=== PATIENT | male | born 1950 | race Caucasian/White ===

== ENCOUNTER 2020-07-07 12:06 | Outpatient (REF) | payer OTHER, SELFPAY ==
[2020-07-07 18:07] LABS: Abs Immature Grans 0.07 10^3/uL (0.0-0.06); Absolute Eosinophil Count 0.24 10^3/uL (0.0-0.7); Absolute Lymphocyte Count 2.54 10^3/uL (1.2-3.4); Absolute Monocyte Count 1.05 10^3/uL (0.1-0.8); Absolute Neutrophil Count 6.94 10^3/uL (1.2-6.7); Basophils % 0.6; Eosinophils % 2.2; HCT 48.8 % (40.0-50.0); HGB 16.7 g/dL (13.5-17.5); Immature Grans % 0.6; Lymphocytes % 23.3; MCHC 34.2 % (32.0-36.0); MCV 90.7 fL (80-95); MPV 11.6 fL (8.0-11.0); Monocytes % 9.6; Neutrophils % 63.7; Nucleated RBC 0 %; Platelet Count 339 10^3/uL (130-400); RBC 5.38 10^6/uL (4.36-5.78); RDW 13.6 % (11.8-14.1); RDW-SD 45.4 fL
[2020-07-07 18:08] LABS: Absolute Basophil Count 0.07 10^3/uL (0.0-0.2)
[2020-07-07 18:31] LABS: ALT 27 U/L (16-63); Albumin 3.6 g/dL (3.4-5.0); Alkaline Phosphatase 78 U/L (46-116); Anion Gap 8.8 mmol/L (3-11); BUN 19 mg/dL (7-18); Bilirubin, Total 0.5 mg/dL (0.2-1.0); CO2 26.2 mmol/L (21.0-32.0); CREATININE 1.09 mg/dL (0.70-1.30); Calcium 9.4 mg/dL (8.5-10.1); Chloride 101 mmol/L (98-107); Glucose 119 mg/dL (74-106); Potassium 4.2 mmol/L (3.5-5.1); Sodium 136 mmol/L (136-145); Total Protein 7.1 g/dL (6.4-8.2)
[2020-07-07 19:37] LABS: AST 29 U/L (15-37)
== END 2020-07-07 12:26 ==
LOC: NCHCN 12:06
PROVIDERS: PCP Family Medicine; Visit Provider Family Medicine
DX: D64.9 Anemia, unspecified (principal); N39.0 Urinary tract infection, site not specified
CPT/HCPCS: 80053; 85025; 87086

== ENCOUNTER 2020-07-15 08:30 | Outpatient (REF) | payer OTHER, SELFPAY ==
[2020-07-19 23:18] LABS: Source: Passed Stone
== END 2020-07-15 08:50 ==
LOC: NCHCN 08:30
PROVIDERS: PCP Family Medicine; Visit Provider Family Medicine
DX: N20.0 Calculus of kidney (principal)
CPT/HCPCS: 82365

== ENCOUNTER 2020-08-06 12:04 | Outpatient (REF) | payer MEDICARE, SELFPAY | END 2020-08-06 12:24 | LOC: NCHCN 12:04 | PROVIDERS: PCP Family Medicine; Visit Provider Family Medicine | DX: R31.0 Gross hematuria (principal) | CPT/HCPCS: 87086 ==

== ENCOUNTER 2020-08-13 16:56 | Outpatient (REF) | payer MEDICARE, SELFPAY ==
[2020-08-13 18:12] LABS: Bilirubin Negative (Negative); Blood Negative (Negative); Clarity Clear (Clear); Glucose 100 mg/dL (Negative); Ketones Negative (Negative); Leukocyte Esterase Negative (Negative); Nitrite Negative (Negative); Urobilinogen 0.2 EU/dL (Up TO 0.2)
== END 2020-08-13 17:16 ==
LOC: NCHCN 16:56
PROVIDERS: PCP Family Medicine; Visit Provider Family Medicine
DX: R31.0 Gross hematuria (principal)
CPT/HCPCS: 81003

== ENCOUNTER 2020-08-17 00:51 | Outpatient (CLI) | payer OTHER, SELFPAY ==
[2020-08-17] MEDS: Normal Saline - Diluent 50 ML VIAL IV (10:45)
[2020-08-17] MEDS: Omnipaque 350 MG/ML 100 ML BTL IJ (10:46)
--- NOTE | 2020-08-17 10:55 | DI.CT_ITS ---
EXAM: CT ABDOMEN PELVIS W CLINICAL HISTORY: FLANK PAIN, GROSS HEMATURIA, R31.0 TECHNIQUE: Imaging Protocol: Axial computed tomography images with coronal and sagittal reformatted images were created and reviewed CONTRAST MATERIAL: Intravenous: Omnipaque 350 Contrast volume:100 mL Oral: No COMPARISON: CT ABD PELVIS WITH CONTRAST from 10/17/2017 FINDINGS: ABDOMEN: Lung Bases: Emphysematous changes are seen in the lung bases. Calcified granuloma are seen in the kristy ng bases. There is a small hiatal hernia. Liver: Normal density. Several tiny hypodensities are seen scattered throughout the liver. They are too small for further characterization but likely reflect small cysts. They are stable compared to t he prior examination. Portal, Superior Mesenteric, and Splenic Veins: Unremarkable. Gallbladder and Biliary Tract: No radiodense calculus or dilation. Pancreas: Normal density, no abnormal calcifications or inflammatory process. Spleen: Normal. There are calcified granuloma in the spleen. Adrenals: There are stable bilateral adrenal nodules. Kidneys: Normal size, contour and axis. No radiodense stones or obstructive uropathy. There are stabl e bilateral renal cysts. No suspicious renal masses. Abdominal Aorta: Abdominal portion non-dilated. Atherosclerosis. Bowel: No obstruction or bowel wall thickening. No evidence of appendicitis. Extensive colonic diver ticulosis is present but no evidence of acute diverticulitis. Peritoneal Cavity: No ascites, collection or mesenteric inflammatory response. No free air. Lymph Nodes: Within normal limits. Bones: Degenerative changes. Soft Tissues: There is a small fat containing umbilical hernia. PELVIS: Bladder: There is mild diffuse uniform bladder wall thickening likely secondary to bladder outlet obs truction. There is an enlarged prostate gland. It impinges upon the base of the urinary bladder. Reproductive Organs: Enlarged prostate gland. Lymph Nodes: Within normal limits. Bones: Degenerative changes. IMPRESSION: 1. Enlarged prostate gland impinging upon the base of the urinary bladder. Uniform symmetric urinary bladder wall thickening likely due to bladder outlet obstruction. No definite findings to suggest a n inflammatory/infectious process. 2. No evidence of nephrolithiasis or hydronephrosis. 3. Stable bilateral adrenal nodules. 4. Colonic diverticulosis but no evidence of acute diverticulitis. RADIATION DOSE DELIVERED: 709.89mGy.cm Total DLP DATA REPOSITORY: All CT scans at this facility are submitted to the National Radiology Data Registry (NRDR) Dose Index Registry (DIR) with the [employer] (A[employer]). RADIATION OPTIMIZATION: All CT scans at this facility use at least one of these dose optimization te chniques: automated exposure control; mA and/or kV adjustment per patient size (includes targeted exa ms where dose is matched to clinical indication); or iterative reconstruction.
== END 2020-08-17 01:11 ==
PROVIDERS: PCP Family Medicine; Visit Provider Family Medicine
DX: R31.0 Gross hematuria (principal); N40.1 Benign prostatic hyperplasia with lower urinary tract symptoms; K57.30 Diverticulosis of large intestine without perforation or abscess without bleeding; E27.8 Other specified disorders of adrenal gland
CPT/HCPCS: 74177; J3490

== ENCOUNTER 2020-08-27 03:17 | Outpatient (CLI) | payer MEDICARE, SELFPAY | END 2020-08-27 03:37 | PROVIDERS: PCP Family Medicine; Visit Provider Family Medicine | DX: I10 Essential (primary) hypertension (principal); R10.31 Right lower quadrant pain | CPT/HCPCS: 36415; 82565 ==

== ENCOUNTER 2020-09-01 09:37 | Outpatient (REF) | payer MEDICARE, SELFPAY ==
[2020-09-01 20:28] LABS: PSA, Screening 7.6 ng/mL (0.0-6.5)
== END 2020-09-01 09:38 | disposition home or self-care (01) ==
LOC: URO 09:37
PROVIDERS: PCP Family Medicine; Referring Provider Family Medicine; Visit Provider Nurse Practitioner Gerontology
DX: Z12.5 Encounter for screening for malignant neoplasm of prostate (principal)
CPT/HCPCS: 84153

== ENCOUNTER → 2020-09-01 09:37 | Outpatient (BNVA) | payer MEDICARE, SELFPAY | PROVIDERS: PCP Family Medicine; Referring Provider Family Medicine; Visit Provider Nurse Practitioner Gerontology | DX: R31.0 Gross hematuria (principal); N40.1 Benign prostatic hyperplasia with lower urinary tract symptoms; N13.8 Other obstructive and reflux uropathy | CPT/HCPCS: 99215; G2212 ==

== ENCOUNTER 2020-12-16 02:47 | Outpatient (CLI) | payer MEDICARE, SELFPAY ==
[2020-12-18 17:16] LABS: Free PSA/PSA Ratio 0.23 ratio
== END 2020-12-16 02:48 | disposition home or self-care (01) ==
LOC: LBO 02:48
PROVIDERS: PCP Family Medicine; Visit Provider Nurse Practitioner Gerontology
DX: R97.20 Elevated prostate specific antigen [PSA] (principal)
CPT/HCPCS: 36415; 84154

== ENCOUNTER 2021-07-19 18:50 | Outpatient (REF) | payer MEDICARE, SELFPAY ==
[2021-07-20 09:37] LABS: Bilirubin Negative (Negative); Blood Trace-intact (Negative); Clarity Clear (Clear); Glucose Negative (Negative); Ketones Negative (Negative); Leukocyte Esterase Negative (Negative); Nitrite Negative (Negative); Specific Gravity 1.015 (1.005-1.025); Urobilinogen 0.2 EU/dL (Up TO 0.2); pH 5.5 (5-8)
[2021-07-20 09:45] LABS: Bacteria Rare HPF (Negative); C & S Indicated? No; Casts Negative LPF (Negative); Crystals Negative HPF (Negative); Epithelial Cells Rare HPF (Negative); Mucus Negative (Negative); WBC 0-2 HPF (0-5)
== END 2021-07-19 18:51 | disposition home or self-care (01) ==
LOC: NCHCN 18:50
PROVIDERS: PCP Family Medicine; Visit Provider Family Medicine
DX: R31.0 Gross hematuria (principal)
CPT/HCPCS: 81003; 81015

== ENCOUNTER 2021-10-13 16:59 | Outpatient (REF) | payer MEDICARE, SELFPAY ==
[2021-10-13 11:57] LABS: Bilirubin Negative (Negative); Blood Large (Negative); Clarity Clear (Clear); Glucose Negative (Negative); Ketones Negative (Negative); Leukocyte Esterase Negative (Negative); Nitrite Negative (Negative); Urobilinogen 0.2 EU/dL (Up TO 0.2)
[2021-10-13 12:05] LABS: Bacteria Few HPF (Negative); C & S Indicated? Yes; Casts Negative LPF (Negative); Crystals Negative HPF (Negative); Epithelial Cells Rare HPF (Negative); Mucus Negative (Negative); RBC 20-50 HPF (0-2)
== END 2021-10-13 17:00 | disposition home or self-care (01) ==
LOC: NCHCN 16:59
PROVIDERS: PCP Family Medicine; Visit Provider Family Medicine
DX: R31.0 Gross hematuria (principal)
CPT/HCPCS: 81003; 81015; 87086

== ENCOUNTER → 2021-11-02 12:59 | Outpatient (BNVA) | payer MEDICARE, OTHER, SELFPAY | PROVIDERS: PCP Family Medicine; Referring Provider Family Medicine; Visit Provider Urology | DX: N40.1 Benign prostatic hyperplasia with lower urinary tract symptoms (principal); N13.8 Other obstructive and reflux uropathy; R31.9 Hematuria, unspecified; N32.89 Other specified disorders of bladder | CPT/HCPCS: 52000; 81003 ==

== ENCOUNTER 2021-12-20 15:21 | Outpatient (REF) | payer MEDICARE, OTHER, SELFPAY ==
[2021-12-20 17:07] LABS: ALT 39 U/L (16-63); AST 28 U/L (15-37); Albumin 3.7 g/dL (3.4-5.0); Alkaline Phosphatase 85 U/L (46-116); Anion Gap 10.2 mmol/L (3-11); BUN 14 mg/dL (7-18); Bilirubin, Total 0.4 mg/dL (0.2-1.0); CO2 24.8 mmol/L (21.0-32.0); CREATININE 1.1 mg/dL (0.70-1.30); Calcium 9.1 mg/dL (8.5-10.1); Calculated LDL 202 mg/dL (<100); Chloride 101 mmol/L (98-107); Cholesterol 296 mg/dL (<200); Glucose 111 mg/dL (74-106); HDL Cholesterol 50 mg/dL (40-60); Potassium 4.6 mmol/L (3.5-5.1); Sodium 136 mmol/L (136-145); Total Protein 7.4 g/dL (6.4-8.2); Triglyceride 223 mg/dL (<150)
[2021-12-20 22:49] LABS: PSA, Diagnostic 10.2 ng/mL (<=6.5)
== END 2021-12-20 15:22 | disposition home or self-care (01) ==
LOC: NCHCN 15:21
PROVIDERS: PCP Family Medicine; Visit Provider Family Medicine
DX: I10 Essential (primary) hypertension (principal); F10.99 Alcohol use, unspecified with unspecified alcohol-induced disorder; C67.9 Malignant neoplasm of bladder, unspecified; R97.20 Elevated prostate specific antigen [PSA]; E78.5 Hyperlipidemia, unspecified
CPT/HCPCS: 80053; 80061; 84153

== ENCOUNTER 2022-01-05 03:49 | Outpatient (CLI) | payer MEDICARE, OTHER, SELFPAY ==
[2022-01-06 17:25] LABS: Free PSA/PSA Ratio 0.27 ratio
== END 2022-01-05 03:50 | disposition home or self-care (01) ==
LOC: LBO 03:49
PROVIDERS: PCP Family Medicine; Visit Provider Nurse Practitioner Gerontology
DX: R97.20 Elevated prostate specific antigen [PSA] (principal)
CPT/HCPCS: 36415; 84154

== ENCOUNTER 2022-01-14 11:06 | Outpatient (REF) | payer MEDICARE, OTHER, SELFPAY ==
[2022-01-14 12:04] LABS: Bilirubin Negative (Negative); Blood Negative (Negative); Clarity Clear (Clear); Glucose Negative (Negative); Ketones Negative (Negative); Leukocyte Esterase Negative (Negative); Nitrite Negative (Negative); Urobilinogen 0.2 EU/dL (Up TO 0.2)
== END 2022-01-14 11:07 | disposition home or self-care (01) ==
LOC: LBN 11:06
PROVIDERS: PCP Family Medicine; Visit Provider Nurse Practitioner Family
DX: C67.9 Malignant neoplasm of bladder, unspecified (principal); Z01.818 Encounter for other preprocedural examination
CPT/HCPCS: 81003

== ENCOUNTER → 2022-08-16 12:44 | Outpatient (BNVA) | payer MEDICARE, OTHER, SELFPAY | PROVIDERS: PCP Family Medicine; Referring Provider Family Medicine; Visit Provider Urology | DX: Z08 Encounter for follow-up examination after completed treatment for malignant neoplasm (principal); Z85.51 Personal history of malignant neoplasm of bladder; N40.1 Benign prostatic hyperplasia with lower urinary tract symptoms; N13.8 Other obstructive and reflux uropathy | CPT/HCPCS: 52000; 81003; 99213 ==

== ENCOUNTER 2022-08-16 15:01 | Outpatient (REF) | payer MEDICARE, OTHER, SELFPAY ==
--- NOTE | 2022-08-16 13:00 | PAPNONF_PTH ---
PATIENT: Ankush Caraballo LOC: [facility] U#:[id number] AGE/SX: 72/M ROOM: RE08/16/[address]: Blake Flores MD : 1950 BED: DIS: 08/16/2022 SPEC #: [id number] RECD: 08/16/22 15:13 STATUS: HOWARD REQ #: [id number] EUGENIO: 08/16/22 13:[address]: Blake Flores DEPT: [facility] Cytology RECD BY: Mary Camarillo ENTERED: 08/16/22 15:13 SP TYPE: ZACHERY JOHN DR: Clifford Valle Tissues: 1 - BODY FLUID CYTO(SPUTUM/URINE)[facility] Procedures: BODY FLUID CYTO(URINE/SPUTUM) Comments: [id number] (TOTAL URINE VOLUME = 60 ml, 30 ml CYTOLYT ADDED)
== END 2022-08-16 15:02 | disposition home or self-care (01) ==
LOC: LBN 15:01
PROVIDERS: PCP Family Medicine; Visit Provider Urology
DX: Z85.51 Personal history of malignant neoplasm of bladder (principal); R82.89 Other abnormal findings on cytological and histological examination of urine
CPT/HCPCS: 88104

== ENCOUNTER 2022-09-19 17:48 | Outpatient (REF) | payer MEDICARE, OTHER, SELFPAY ==
[2022-09-19 15:35] LABS: Anion Gap 8.1 mmol/L (3-11); BUN 18 mg/dL (7-18); CO2 25.9 mmol/L (21.0-32.0); CREATININE 1.3 mg/dL (0.70-1.30); Calcium 9.4 mg/dL (8.5-10.1); Chloride 101 mmol/L (98-107); Estimated GFR 58.37 (mL/min/1.73m2); Glucose 116 mg/dL (74-106); Potassium 4.2 mmol/L (3.5-5.1); Sodium 135 mmol/L (136-145)
[2022-09-19 22:27] LABS: PSA, Diagnostic 4.3 ng/mL (<=6.5)
== END 2022-09-19 17:49 | disposition home or self-care (01) ==
LOC: NCHCN 17:48
PROVIDERS: PCP Family Medicine; Visit Provider Family Medicine
DX: R97.20 Elevated prostate specific antigen [PSA] (principal); I10 Essential (primary) hypertension
CPT/HCPCS: 80048; 84153

== ENCOUNTER → 2022-11-18 12:57 | Outpatient (BNVA) | payer MEDICARE, OTHER, SELFPAY | PROVIDERS: PCP Family Medicine; Visit Provider Urology | DX: Z08 Encounter for follow-up examination after completed treatment for malignant neoplasm (principal); Z85.51 Personal history of malignant neoplasm of bladder | CPT/HCPCS: 52000; 81003 ==

== ENCOUNTER 2022-11-18 15:07 | Outpatient (REF) | payer MEDICARE, OTHER, SELFPAY ==
--- NOTE | 2022-11-18 13:30 | PAPNONF_PTH ---
PATIENT: Ankush Caraballo LOC: [facility] U#:[id number] AGE/SX: 72/M ROOM: RE11/18/[address]: Blake Flores MD : 1950 BED: DIS: 11/18/2022 SPEC #: [id number] RECD: 11/18/22 17:10 STATUS: HOWARD REQ #: [id number] EUGENIO: 11/18/22 13:[address]: Blake Flores DEPT: [facility], [facility]–1983 Cytology RECD BY: Mary Camarillo ENTERED: 11/18/22 17:11 SP TYPE: ZACHERY JOHN DR: Clifford Valle Tissues: 1 - BODY FLUID CYTO(SPUTUM/URINE)[facility] Procedures: BODY FLUID CYTO(URINE/SPUTUM) Comments: [id number] (TV = 60 ml, 30 ml CYTOLYT ADDED) (REFRIGERATED)
== END 2022-11-18 15:08 | disposition home or self-care (01) ==
LOC: LBN 15:07
PROVIDERS: PCP Family Medicine; Visit Provider Urology
DX: Z85.51 Personal history of malignant neoplasm of bladder (principal); R82.998 Other abnormal findings in urine
CPT/HCPCS: 88104

== ENCOUNTER 2023-05-23 15:21 | Outpatient (REF) | payer MEDICARE, OTHER, SELFPAY ==
[2023-05-23 16:32] LABS: Calculated LDL 148 mg/dL (<100); Cholesterol 238 mg/dL (<200); HDL Cholesterol 55 mg/dL (40-60); Triglyceride 179 mg/dL (<150)
== END 2023-05-23 15:22 | disposition home or self-care (01) ==
LOC: NCHCN 15:21
PROVIDERS: PCP Family Medicine; Visit Provider Family Medicine
DX: E78.5 Hyperlipidemia, unspecified (principal)
CPT/HCPCS: 80061

== ENCOUNTER → 2023-11-17 12:48 | Outpatient (BNVA) | payer MEDICARE, OTHER, SELFPAY | PROVIDERS: PCP Family Medicine; Referring Provider Family Medicine; Visit Provider Urology | DX: R97.20 Elevated prostate specific antigen [PSA] (principal); N40.1 Benign prostatic hyperplasia with lower urinary tract symptoms; N13.8 Other obstructive and reflux uropathy; C67.9 Malignant neoplasm of bladder, unspecified | CPT/HCPCS: 52000; 81003 ==

== ENCOUNTER 2023-11-17 13:59 | Outpatient (REF) | payer MEDICARE, OTHER, SELFPAY ==
--- NOTE | 2023-11-17 13:15 | PAPNONF_PTH ---
PATIENT: Ankush Caraballo LOC: [facility] U#:[id number] AGE/SX: 73/M ROOM: RE11/17/[address]: Blake Flores MD : 1950 BED: DIS: 11/17/2023 SPEC #: [id number] RECD: 11/17/23 16:52 STATUS: HOWARD REQ #: [id number] EUGENIO: 11/17/23 13:[address]: Blake Flores DEPT: [facility] Cytology RECD BY: Mary Camarillo ENTERED: 11/17/23 16:53 SP TYPE: ZACHERY JOHN DR: Clifford Valle Tissues: 1 - BODY FLUID CYTO(SPUTUM/URINE)[facility] Procedures: BODY FLUID CYTO(URINE/SPUTUM) Comments: [id number] (TV = 60 ml, 30 ml CYTOLYT ADDED) (REFRIGERATED)
== END 2023-11-17 14:00 | disposition home or self-care (01) ==
LOC: LBN 13:59
PROVIDERS: PCP Family Medicine; Visit Provider Urology
DX: C67.9 Malignant neoplasm of bladder, unspecified (principal)
CPT/HCPCS: 88104

== ENCOUNTER → 2024-11-15 12:59 | Outpatient (BNVA) | payer MEDICARE, OTHER, SELFPAY | PROVIDERS: PCP Family Medicine; Referring Provider Family Medicine; Visit Provider Urology | DX: C67.9 Malignant neoplasm of bladder, unspecified (principal); R31.9 Hematuria, unspecified; R30.0 Dysuria; B96.89 Other specified bacterial agents as the cause of diseases classified elsewhere; B95.4 Other streptococcus as the cause of diseases classified elsewhere | CPT/HCPCS: 81003; 99213 ==

== ENCOUNTER 2024-11-15 18:50 | Outpatient (REF) | payer MEDICARE, OTHER, SELFPAY | END 2024-11-15 18:51 | disposition home or self-care (01) | LOC: LBN 18:50 | PROVIDERS: PCP Family Medicine; Visit Provider Urology | DX: R31.9 Hematuria, unspecified (principal) | CPT/HCPCS: 87077; 87086 ==

== ENCOUNTER → 2024-12-17 11:01 | Outpatient (BNVA) | payer MEDICARE, OTHER, SELFPAY | PROVIDERS: PCP Student in an Organized Health Care Education/Training Program; Referring Provider Student in an Organized Health Care Education/Training Program; Visit Provider Urology | DX: C67.9 Malignant neoplasm of bladder, unspecified (principal); R30.0 Dysuria; N39.0 Urinary tract infection, site not specified | CPT/HCPCS: 99213; 81003 ==

== ENCOUNTER → 2024-12-19 11:34 | Outpatient (BNVA) | payer MEDICARE, OTHER, SELFPAY | PROVIDERS: PCP Student in an Organized Health Care Education/Training Program; Referring Provider Student in an Organized Health Care Education/Training Program; Visit Provider Nurse Practitioner Gerontology | DX: C67.9 Malignant neoplasm of bladder, unspecified (principal); B95.2 Enterococcus as the cause of diseases classified elsewhere; N39.0 Urinary tract infection, site not specified | CPT/HCPCS: 99213; 81003 ==

== ENCOUNTER 2024-12-19 18:16 | Outpatient (REF) | payer MEDICARE, OTHER, SELFPAY | END 2024-12-19 18:17 | disposition home or self-care (01) | LOC: LBN 18:16 | PROVIDERS: PCP Student in an Organized Health Care Education/Training Program; Visit Provider Nurse Practitioner Gerontology | DX: N39.0 Urinary tract infection, site not specified (principal) | CPT/HCPCS: 87077; 87086; 87186 ==

== ENCOUNTER 2024-12-26 12:46 | Outpatient (CLI) | payer MEDICARE, OTHER, SELFPAY ==
--- NOTE | 2024-12-26 | DI.RAD_ITS ---
Exam(s) XR CHEST 2V PA LATERAL EXAM: XR CHEST 2V PA LATERAL CLINICAL HISTORY: ACUTE COUGH R05.1 FORMER SMOKER, QUIT 1 YEAR, 4 WEEKS COUGH 96% O2 SAT. TECHNIQUE: 2D digital imaging was performed. COMPARISON: CT CT ABDOMEN PELVIS W from 10/17/[address] ABDOMEN PELVIS W from 08/17/2020 FINDINGS: 2 views: Heart size is normal. The mediastinum is not widened. There is bilateral hyperinflation-COPD change. There are relatively symmetrical densities over both mid lung ontiveros. I suspect that these other breast nipples. No confluent infiltrates. There pleura l based densities over the left hemithorax. Possibly pleural plaques. No pleural effusions. No pul monary edema. Artifact seen over both lung apices probably here related. IMPRESSION: Bilateral hyperinflation. Left-sided pleural based densities. These may represent pleural plaques. Consider CT scan. DATA REPOSITORY: RADIATION DOSE DELIVERED:
== END 2024-12-26 13:06 ==
LOC: DI 12:47
PROVIDERS: PCP Student in an Organized Health Care Education/Training Program; Visit Provider Student in an Organized Health Care Education/Training Program
DX: R05.1 Acute cough (principal); R91.8 Other nonspecific abnormal finding of lung field
CPT/HCPCS: 71046

== ENCOUNTER 2025-01-10 12:31 | Outpatient (CLI) | payer MEDICARE, OTHER, SELFPAY ==
[2025-01-10 13:16] LABS: Anion Gap 10.2 mmol/L (3-11); BUN 15 mg/dL (7-18); CO2 25.8 mmol/L (21.0-32.0); CREATININE 1.1 mg/dL (0.70-1.30); Calcium 8.8 mg/dL (8.5-10.1); Chloride 103 mmol/L (98-107); Estimated GFR 70.44 (mL/min/1.73m2); Glucose 123 mg/dL (74-106); Potassium 3.5 mmol/L (3.5-5.1); Sodium 139 mmol/L (136-145)
== END 2025-01-10 12:32 | disposition home or self-care (01) ==
LOC: LBO 12:31
PROVIDERS: PCP Student in an Organized Health Care Education/Training Program; Visit Provider Student in an Organized Health Care Education/Training Program
DX: R91.8 Other nonspecific abnormal finding of lung field (principal)
CPT/HCPCS: 36415; 80048

== ENCOUNTER 2025-02-28 18:30 | Emergency (ER) | payer MEDICARE, OTHER, SELFPAY ==
[2025-02-28] VITALS (11 sets, daily range): BP systolic 136–159; BP diastolic 60–94; PULSE 54–81; RESP 8–21; TEMP 36; O2SAT 97–99
--- NOTE | 2025-02-28 18:30 | RT.EKG_ITS ---
APPROVED REPORT Exam: Resting ECG Reason for Exam: chest pressure Patient Location: E HR:58 bpm ECG Measurements Heart Rate 58 AXIS WY 87 P 0 QRSd 114 QRS 78 QT 456 T 77 QTc 441 Conclusion Second degree AV block, Mobitz II...multiple P waves Supraventricular bigeminy...bigeminy string>4 w/ SV complexes Inferior infarct, acute...ST>0.10mV, T upright, II III aVF ST segment elevation 2 3 aVF with reciprocal changes anterior lateral depressions, second-degree AV block type I
--- NOTE | 2025-02-28 18:30 | DI.RAD_ITS ---
Exam(s) XR PORTABLE CHEST AP EXAM: XR PORTABLE CHEST AP CLINICAL HISTORY: chest pain TECHNIQUE: 2D digital imaging was performed. COMPARISON: CT CT ABDOMEN PELVIS W from 08/17/2020 CR XR CHEST 2V PA LATERAL from 12/26/2024 FINDINGS: Exam is limited by overlying abdominal soft tissues at the lung bases. LUNGS: Chronic interstitial changes. No focal infiltrate or evidence of pulmonary edema. No pleural abnormality seen. HEART: Normal size. AORTA: Normal diameter. BONES: Unremarkable for age. Soft tissues: Unremarkable. IMPRESSION: Limited exam. No acute findings. DATA REPOSITORY: RADIATION DOSE DELIVERED:
[2025-02-28] MEDS: Aspirin 81 MG CHEW 324 MG CH (18:49)
[2025-02-28 19:00] LABS: Abs Immature Grans 0.06 10^3/uL (0.0-0.06); HCT 50.9 % (40.0-50.0); HGB 17.2 g/dL (13.5-17.5); Immature Grans % 0.5 %; MCH 29.8 pg (27.0-33.0); MCHC 33.8 % (32.0-36.0); MCV 88 fL (80-95); MPV 10.6 fL (8.0-11.0); Platelet Count 307 10^3/uL (130-400); RBC 5.78 10^6/uL (4.36-5.78); RDW 13.9 % (11.8-14.1); RDW-SD 44.5 fL; WBC 12.94 10^3/uL (4.4-10.8)
--- NOTE | 2025-02-28 19:06 | W.ED.GENAD ---
Discharge Plan Disposition Patient Disposition: Transfer-Acute Inpatient Care Specific Acute Inpt Facility: [facility] Condition: Stable Discharge Details Clinical Impression: ST elevation (STEMI) myocardial infarction Primary Care Provider: Mehdi Vanegas ED Provider: Jerald Liao Home Meds and New Rx's Prescriptions: No Action amoxicillin 500 mg capsule 500 mg PO TID Qty: 15 0RF tadalafil [Cialis] 10 mg tablet 10 mg PO DAILY PRN Rx Instructions: administer approximately 30min before sexual activity; do not use more than 1 dose per 24hrs magnesium 200 mg tablet 200 mg PO BID calcium carb-vitamin D3-vit K2 500 mg calcium- 200 unit-90 mcg tablet PO garlic extract 600 mg tablet 600 mg PO DAILY zinc citrate 11 mg tablet,chewable 22 mg PO omega-3 fatty acids 1,250 mg capsule 1,250 mg PO DAILY Algal-900 DHA 300 mg capsule 900 mg PO BID acetaminophen [Tylenol] 325 MG tablet 650 mg PO Q6H PRN PRNQty: 30 0RF ibuprofen 200 MG capsule 600 mg PO Q6H PRN PRNQty: 30 0RF HPI General Date/Time Provider Initiated Documentation: 02/28/25 18:41. HPI Narrative: 74-year-old male history of hypertension hyperlipidemia presents with chest pain staggering over the last day beginning last night, associated with diaphoresis and nausea, no vomiting, patient also had near syncopal episode this evening, denies history of thromboembolic disease denies history of coronary artery disease. Related Data Home Medications ?Medication ?Instructions ?Recorded ?Confirmed acetaminophen 325 mg tablet 650 mg (2 x 325 mg) PO Q6H PRN PRN 10/18/17 02/28/25 (Tylenol) #30 tabs Held on 02/28/25. Instructions: Pt Stopped/Never Started ibuprofen 200 mg capsule 600 mg (3 x 200 mg) PO Q6H PRN PRN 10/18/17 02/28/25 Held on 02/28/25. #30 caps Instructions: Pt Stopped/Never Started tadalafil 10 mg tablet (Cialis) 10 mg PO DAILY PRN 07/09/20 02/28/25 Held on 02/28/25. Instructions: Pt Stopped/Never Started calcium 500 mg (as tab PO 08/16/22 12/19/24 carbonate)-vitamin D3 200 unit-vit K2 90 mcg tablet Held on 02/28/25. Instructions: Pt Stopped/Never Started docosahexaenoic acid 300 mg 900 mg PO BID 08/16/22 02/28/25 capsule (Algal-900 DHA) Held on 02/28/25. Instructions: Pt Stopped/Never Started garlic extract 600 mg tablet 600 mg PO DAILY 08/16/22 02/28/25 Held on 02/28/25. Instructions: Pt Stopped/Never Started magnesium 200 mg tablet 200 mg PO BID 08/16/22 02/28/25 Held on 02/28/25. Instructions: Pt Stopped/Never Started omega-3 fatty acids 1,250 mg 1,250 mg PO DAILY 08/16/22 02/28/25 capsule Held on 02/28/25. Instructions: Pt Stopped/Never Started zinc citrate 11 mg chewable tablet 22 mg PO 08/16/22 12/19/24 Held on 02/28/25. Instructions: Pt Stopped/Never Started amoxicillin 500 mg capsule 500 mg PO TID #15 caps 12/19/24 02/28/25 Held on 02/28/25. Instructions: Pt Stopped/Never Started Previous Rx's ?Medication ?Instructions ?Recorded acetaminophen 325 mg tablet 650 mg (2 x 325 mg) PO Q6H PRN PRN 10/18/17 (Tylenol) #30 tabs Held on 02/28/25. Instructions: Pt Stopped/Never Started ibuprofen 200 mg capsule 600 mg (3 x 200 mg) PO Q6H PRN PRN 10/18/17 Held on 02/28/25. #30 caps Instructions: Pt Stopped/Never Started amoxicillin 500 mg capsule 500 mg PO TID #15 caps 12/19/24 Held on 02/28/25. Instructions: Pt Stopped/Never Started Allergies Allergy/AdvReac Type Severity Reaction Status Date / Time perfumes AdvReac Mild rhinitis Uncoded 02/28/25 18:44 General Stated Complaint: Chest Pain LANCE: 2 Exam Narrative Exam Narrative: General: alert, uncomfortable appearing HEENT: normocephalic, atraumatic, neck supple, pupils equal round reactive to light, moist mucous membranes, tolerating secretions, normal voice, no rhinorrhea or otorrhea Respiratory: normal respiratory effort, lungs clear bilaterally, no wheezes rales or rhonchi Cardiac: regular rate and rhythm, no murmurs rubs or gallops; equal pulses bilaterally, warm well perfused; no peripheral edema Abdominal: soft, nontender, nondistended; no organomegaly or palpable masses MSK: normal range of motion of extremities, warm, well perfused Skin: Pallor, ashen Neuro: AAOx3, CN II-XII intact, 5/5 strength bilateral upper and lower extremities, normal speech, no ataxia Psych: normal mood, normal affect, calm, cooperative Course Vital Signs Vital signs: Vital Signs Temperature 36.0 C L 02/28/25 18:33 Pulse 61 02/28/25 18:33 Respiratory Rate 19 02/28/25 18:33 Blood Pressure 159/71 H 02/28/25 18:33 Pulse Oximetry 98 02/28/25 18:33 Temperature 36.0 C L 02/28/25 18:33 Pulse 61 02/28/25 18:33 Respiratory Rate 19 02/28/25 18:33 Respiratory Effort Short of Breath 02/28/25 18:41 Respiratory Depth Normal 02/28/25 18:41 Respiratory Pattern Normal 02/28/25 18:41 Blood Pressure 159/71 H 02/28/25 18:33 Pulse Oximetry 98 02/28/25 18:33 Oxygen Delivery Method Room Air 02/28/25 18:33 Oxygen Flow Rate 0 02/28/25 18:33 Pain Level 3 02/28/25 18:33 Lab/Test Results Lab/Test Results: Laboratory Tests Range/Units 02/28/25 18:38 WBC (4.4-10.8) 10^3/uL 12.94 H RBC (4.36-5.78) 10^6/uL 5.78 Hgb (13.5-17.5) g/dL 17.2 Hct (40.0-50.0) % 50.9 H MCV (80-95) fL 88 MCH (27.0-33.0) pg 29.8 MCHC (32.0-36.0) % 33.8 RDW (11.8-14.1) % 13.9 Plt Count (130-400) 10^3/uL 307 MPV (8.0-11.0) fL 10.6 Immature Gran % % 0.5 Neutrophils % % 85.6 Lymphocytes % % 10.0 Monocytes % % 3.7 Eosinophils % % 0.0 Basophils % % 0.2 Nucleated RBC % (0.0-0.3) % 0.0 Absolute Neutrophils (1.2-6.7) 10^3/uL 11.08 H Absolute Lymphocytes (1.2-3.4) 10^3/uL 1.29 Absolute Monocytes (0.1-0.8) 10^3/uL 0.48 Absolute Eosinophils (0.0-0.7) 10^3/uL 0.00 Absolute Basophils (0.0-0.2) 10^3/uL 0.03 Medical Decision Making 74-year-old male history of hypertension hyperlipidemia presents with staggering chest pain associate with presyncope nausea and diaphoresis over the last day, appears uncomfortable pale and ashen on examination although maintaining hemodynamic status, neurologically intact, airway breathing and circulation intact, EKG consistent with inferior STEMI ST segment elevation [address] segment depression anterior lateral leads as well as second-degree AV block Mobitz type I, patient loaded with aspirin, IV access obtained patient on monitor, discussed case with [facility] interventional cardiology team who is in agreement with initiating TNK given time of transport to [facility] we will also initiate heparin and loaded with Plavix, accepting physician Dr. Verma. Patient consented for transfer, [facility] All Active Problems (Updated 02/28/25 @ 20:30 by Jerald Liao MD) ST elevation (STEMI) myocardial infarction (Acute) Bilateral sensorineural hearing loss (Acute) Bladder cancer (Acute) Elevated PSA (Acute) BPH w urinary obs/LUTS (Acute) Acute appendicitis (Acute) Medical History (Updated 02/28/25 @ 20:30 by Jerald Liao MD) Gross hematuria Vitamin D deficiency Erectile dysfunction Nephrolithiasis HLD (hyperlipidemia) Olecranon bursitis Hypertension Vitiligo Mild anemia Hematuria Surgical History (Updated 10/23/17 @ 10:33 by Danii Eng) Appendectomy (10/17/17) Social History Smoking/Tobacco Use Status: Former Tobacco Use Smoking risk assessment performed?: Yes Alcohol Intake: current Alcohol Intake frequency: 0-2 drinks per day Drug use: Never Substance use type: does not use Housing: house Do you feel safe at home: Yes Do you feel safe in your relationship?: Yes
[2025-02-28] MEDS: Clopidogrel 300 MG TAB PO (19:15)
[2025-02-28] MEDS: Tenecteplase 50 MG KIT 45 MG IVP (19:15)
[2025-02-28] MEDS: Heparin in 0.45% NaCl 25,000 UNIT/250 ML BAG 9.72 UNIT IVINF (19:16)
[2025-02-28 19:22] LABS: ALT 69 U/L (16-63); AST 361 U/L (15-37); Albumin 3.6 g/dL (3.4-5.0); Alkaline Phosphatase 105 U/L (46-116); Anion Gap 11.0 mmol/L (3-11); BUN 19 mg/dL (7-18); Bilirubin, Total 0.8 mg/dL (0.2-1.0); CO2 29.0 mmol/L (21.0-32.0); Calcium 9.3 mg/dL (8.5-10.1); Chloride 97 mmol/L (98-107); Estimated GFR 44.93 (mL/min/1.73m2); Glucose 172 mg/dL (74-106); NT-proBNP 974 pg/mL (<300); Potassium 4.0 mmol/L (3.5-5.1); Sodium 137 mmol/L (136-145); Total Protein 7.7 g/dL (6.4-8.2)
[2025-02-28 19:28] LABS: Troponin I 61541 ng/L (<or=76)
[2025-02-28] MEDS: Ondansetron 4 MG/2 ML VIAL IVP (19:35)
== END 2025-02-28 19:38 | disposition short-term general hospital (02) ==
PROVIDERS: Physician Assistant; Emergency Provider Emergency Medicine; PCP Student in an Organized Health Care Education/Training Program
DX: I21.19 ST elevation (STEMI) myocardial infarction involving other coronary artery of inferior wall (principal); I44.1 Atrioventricular block, second degree; E78.5 Hyperlipidemia, unspecified; I10 Essential (primary) hypertension; Z87.891 Personal history of nicotine dependence
CPT/HCPCS: 80053; 93005; 96374; 96375; 99285; 71045; 83880; 84484; 85025; 93010; J1644; J2405; J3101

== ENCOUNTER 2025-03-07 15:10 | Outpatient (CLI) | payer MEDICARE, OTHER, SELFPAY ==
[2025-03-07 13:56] LABS: HCT 43.1 % (40.0-50.0); HGB 14.6 g/dL (13.5-17.5); MCH 30.5 pg (27.0-33.0); MCHC 33.9 % (32.0-36.0); MCV 90 fL (80-95); MPV 10.4 fL (8.0-11.0); Platelet Count 334 10^3/uL (130-400); RBC 4.79 10^6/uL (4.36-5.78); RDW 13.6 % (11.8-14.1); RDW-SD 44.9 fL; WBC 10.06 10^3/uL (4.4-10.8)
[2025-03-07 14:17] LABS: Anion Gap 6.2 mmol/L (3-11); BUN 21 mg/dL (7-18); CO2 25.8 mmol/L (21.0-32.0); Calcium 8.8 mg/dL (8.5-10.1); Chloride 104 mmol/L (98-107); Estimated GFR 57.65 (mL/min/1.73m2); Glucose 95 mg/dL (74-106); NT-proBNP 880 pg/mL (<300); Potassium 4.5 mmol/L (3.5-5.1); Sodium 136 mmol/L (136-145)
[2025-03-07 14:53] LABS: Troponin I 6020 ng/L (<or=76)
== END 2025-03-07 15:11 | disposition home or self-care (01) ==
LOC: LBO 15:10
PROVIDERS: PCP Student in an Organized Health Care Education/Training Program; Visit Provider Student in an Organized Health Care Education/Training Program
DX: I21.3 ST elevation (STEMI) myocardial infarction of unspecified site (principal)
CPT/HCPCS: 36415; 80048; 85027; 83880; 84484

== ENCOUNTER 2025-03-18 10:19 | Outpatient (RCR) | payer MEDICARE, OTHER, SELFPAY | END 2025-03-30 23:59 | disposition home or self-care (01) | LOC: CR 10:19 | PROVIDERS: PCP Student in an Organized Health Care Education/Training Program; Visit Provider Internal Medicine Cardiovascular Disease ==

== ENCOUNTER 2025-04-21 08:06 | Outpatient (CLI) | payer MEDICARE, OTHER, SELFPAY ==
--- NOTE | 2025-04-21 08:00 | RT.EKG_ITS ---
APPROVED REPORT Exam: Resting ECG Reason for Exam: STEMI w PCI Patient Location: O HR:80 bpm ECG Measurements Heart Rate 80 AXIS DE 166 P 29 QRSd 103 QRS 48 QT 412 T -58 QTc 476 Conclusion Sinus rhythm...normal P axis, V-rate 50- 99 Ventricular bigeminy...bigeminy string>4 w/ V complexes Inferior infarct, age indeterminate...Q>35mS, T neg, II III aVF
== END 2025-04-21 08:07 | disposition home or self-care (01) ==
LOC: DI.CARD 08:10
PROVIDERS: PCP Student in an Organized Health Care Education/Training Program; Referring Provider Student in an Organized Health Care Education/Training Program; Visit Provider Registered Nurse
DX: Z53.09 Procedure and treatment not carried out because of other contraindication (principal); I21.9 Acute myocardial infarction, unspecified; I49.8 Other specified cardiac arrhythmias
CPT/HCPCS: 93010

== ENCOUNTER → 2025-04-21 08:06 | Outpatient (BNVA) | payer MEDICARE, OTHER, SELFPAY | PROVIDERS: PCP Student in an Organized Health Care Education/Training Program; Referring Provider Student in an Organized Health Care Education/Training Program; Visit Provider Registered Nurse | DX: I21.9 Acute myocardial infarction, unspecified (principal); I45.9 Conduction disorder, unspecified | CPT/HCPCS: 99214; 93005 ==

== ENCOUNTER 2025-07-11 23:59 | Observation (INO) | payer MEDICARE, OTHER, SELFPAY ==
[2025-07-12] VITALS (46 sets, daily range): BP systolic 116–188; BP diastolic 60–121; PULSE 77–112; RESP 11–36; TEMP 36.3–36.6; O2SAT 94–99
--- NOTE | 2025-07-12 | RT.EKG_ITS ---
APPROVED REPORT Exam: Resting ECG Reason for Exam: Chest pain Patient Location: E HR:102 bpm ECG Measurements Heart Rate 102 AXIS ID 160 P 65 QRSd 89 QRS 71 QT 373 T -44 QTc 486 Conclusion Sinus tachycardia...rate> 99 Ventricular premature complex...V complex w/ short R-R interval Probable left atrial enlargement...P >50mS, <-0.10mV V1 Nonspecific T abnormalities, inferior leads...T <-0.10mV, II III aVF no ST segment or T wave abnormalities to suggest occlusive [place]
[2025-07-12] MEDS: Aspirin 81 MG CHEW (00:13)
--- NOTE | 2025-07-12 00:16 | W.ED.GENAD ---
Discharge Plan Disposition Patient Disposition: Admit to [facility] Condition: Serious Discharge Details Clinical Impression: Near syncope, Elevated lactic acid level, Leukocytosis, History of ST elevation myocardial infarction (STEMI), History of complete heart block Admit Date/Time: 07/12/25 03:48 Admit Provider: Maged Waller Attending Provider: Maged Waller Primary Care Provider: Mehdi Vanegas ED Provider: Kelly Aponte Discharge Data Discharge Date/Time-TO BE ENTERED AT DEPARTURE: 07/12/25 04:35 HPI General Mode of arrival: ambulatory. Date/Time Provider Initiated Documentation: 07/12/25 00:01. Limitations to Documentation: no limitations. Information obtained by: patient and old records reviewed (ed visit 02/28, cardiology visit 04/21). HPI Narrative: 75yo M with hx COPD, bladder cancer, STEMI 02/28/2025, presenting [facility] concern for a heart attack. Reports that about 90 minutes prior to arrival he felt generally unwell, sweaty, nauseated, and weak to the point of falling to the ground. Did not strike his head, lose consciousness, or injure himself in any way. He then vomited once, non-bloody non-bilious. He had similar symptoms when he had his heart attack in February. At that time he also had chest pressure/pain which he has not had today. No chest pain or pressure or shortness of breath at any point. His initially symptoms have resolved and he feels back to normal; he almost decided not to come in. No back pain, arm pain, jaw pain, UE numbness/weakness. No fevers, chills, rash, abdominal pain, dysuria, hematuria, LE edema, or other concerns. Related Data Home Medications ?Medication ?Instructions ?Recorded ?Confirmed omega-3 fatty acids 1,250 mg 1,250 mg PO DAILY 08/16/22 07/12/25 capsule clopidogrel 75 mg tablet 75 mg PO DAILY 03/06/25 07/12/25 losartan 50 mg tablet (Cozaar) 50 mg PO DAILY 07/12/25 07/12/25 Allergies Allergy/AdvReac Type Severity Reaction Status Date / Time perfumes AdvReac Mild rhinitis Uncoded 07/12/25 00:13 General Stated Complaint: Chest Pain LANCE: 3 Review of Systems Narrative: see HPI Exam Narrative Exam Narrative: General: Alert, well appearing, well nourished, in no acute distress. Head: Normocephalic, atraumatic Neck: Trachea midline, ?Neck supple. ENT: ?MMM.? No oropharygeal lesions or exudate. Cardiac: ?RRR, no murmurs appreciated. Equal radial pulses. Resp: No respiratory distress. CTAB. Abd: ?Soft, non-distended, nontender. : ?No suprapubic tenderness. No CVA tenderness. Extremities: ?No deformities.? No peripheral edema. Neuro: ? GCS 15.? PERRL.? EOMI.? Fluent speech, no dysarthria. Motor- 5/5 strength symmetric bilateral upper and lower extremities Sensation- ?Intact to light touch and symmetric multiple dermatomes including upper and lower extremities Coordination- No dysmetria on finger to nose Reflexes- 2/4 achilles & patellar, no clonus Gait/station: ?Normal stance.? No truncal ataxia. Steady gait with equal normal steps Course Vital Signs Vital signs: Vital Signs Temperature 36.3 C L 07/12/25 00:02 Pulse 106 H 07/12/25 00:02 Respiratory Rate 18 07/12/25 00:02 Blood Pressure 188/100 H 07/12/25 00:02 Pulse Oximetry 99 07/12/25 00:02 Temperature 36.3 C L 07/12/25 00:02 Temperature Source Oral 07/12/25 00:02 Pulse 106 H 07/12/25 00:02 Respiratory Rate 18 07/12/25 00:02 Blood Pressure 188/100 H 07/12/25 00:02 Pulse Oximetry 99 07/12/25 00:02 Pain Level 0 07/12/25 00:02 Medical Decision Making 75yo M with hx COPD, bladder cancer, STEMI 02/28/2025, presenting wt concern for a heart attack. 90 minutes [employer]WARE [employer] had nausea/malaise/weakness/diaphoresis, fell to the ground (no LOC or HS). Emesis x 1 (nonbloody nonbilious). This is similar to when he was having a STEMI in February, although at that time he also had chest pain/pressure which he has not had today. Symptoms have entirely resolved. Records reviewed; of note he has been referred to EP for possible pacemaker placement after Zio showed significant episodes of heart block. Hypertensive on arrival (180's/100's) and tachycardiac to low 100's, sinus on the monitor. BP improved to 140's/90's shortly after arrival without intervention. No distress on exam, RRR, lungs CTAB, reports that all his symptoms have resolved. Will give 325 of ASA while awaiting results of workup. -EKG compared to most recent EKG 04/22/25; sinus tachycardia in low 100's, appropriate intervals, no ST segment or T wave abnormalities to suggest occlusive DE, rare PVC -Labs reviewed as below, CBC with leukocytosis to 16, CMP with mild hypokalemia at 3.4 (oral replacement ordered), Mg normal, lipase not suggestive of pancreatitis, dimer elevated (will get CTA), coags normal, BNP elevated at ~1400 (higher than baseline on [facility] record review, patient not clinically in heart failure), troponin normal at 34 with one hour repeat of 28 reassuring against ACS. -With elevated WBC, VBG and lactate ordered; VBG reassuring with no acidosis, lactate mildly elevated at 2.5. Will give small fluid bolus and recheck. Suspect transient hypoperfusion during the episode the patient describes. Not overtly septic, no clear infection present, and pt prefers to avoid interventions when possible/reasonable; will not give antibiotics at this time. -Pt refused head CT due to concerns about radiation; he is adamant that he did not strike his head and given this (along with normal neurologic exam) I feel his stance is reasonable (though lower risk wtih radiation at his age) and after shared decision making order was cancelled. -CXR independently reviewed; no focal pneumonia or pneumothorax on my view, radiology read with questionable pneumonia. Must consider infection especially given his elevated WBC and tachycardia as well as elevated lactate, however he denies any respiratory symptoms. As dimer is elevated and pt is ordered for CTA chest, will further evaluate for possible pneumonia with this imaging and treat if positive. On reassessment he remains well appearing, HR in 80's-90's after fluids. Did have an episode of a burning sour taste in his mouth when he was laid flat for orthostatic vital signs and requested something for acid reflux; given tums. No chest pain/pressure or SOB associated with this. Repeat lactate normalized. Orthostatic vital signs with drop of ~30 in SBP from supine to standing however he was asymptomatic with this. Will give additional liter. -CTA chest independently reviewed; no large saddle emblous or pneumonia on my view, radiology read below with moderate emphysema and no acute findings. -Bedside echo with no large pericardial effusion Unclear etiology of his episode this evening; near syncope with elevated lactate here concerning for hypoperfusion. Workup reassuring against ACS, PE, aisde from elevated WBC he has no infectious signs or symptoms. No events on telemetery. He reports to me that though he was referred for pacemaker placement, his episodes of heart block seems to resolve and ultimately they decided against pacer. I do wonder if the episode this evening may have been related to heart block or other transient arrhythmia; he remains symptom free here. Given this and his history of recent STEMI I think he warrants hospital stay for telemetry monitoring, formal echo when available. Discussed with [facility] hospitalist Dr. Waller; pt accepted to medicine service. Awaiting admission orders and transfer to bed. IMPRESSION: No acute findings Medical Records Medical records reviewed: Yes I reviewed the patient's medical records. Lab Data Lab results reviewed: Yes I reviewed the patient's lab results. Labs: Laboratory Tests Range/Units 07/12/25 07/12/25 07/12/25 00:16 00:55 01:07 WBC (4.4-10.8) 10^3/uL 16.53 H RBC (4.36-5.78) 10^6/uL 6.01 H Hgb (13.5-17.5) g/dL 17.6 H Hct (40.0-50.0) % 52.7 H MCV (80-95) fL 88 MCH (27.0-33.0) pg 29.3 MCHC (32.0-36.0) % 33.4 RDW (11.8-14.1) % 14.1 Plt Count (130-400) 10^3/uL 322 MPV (8.0-11.0) fL 10.5 Immature Gran % % 0.5 Neutrophils % % 81.3 Lymphocytes % % 11.1 Monocytes % % 5.1 Eosinophils % % 1.5 Basophils % % 0.5 Nucleated RBC % (0.0-0.3) % 0.0 Absolute Neutrophils (1.2-6.7) 10^3/uL 13.44 H Absolute Lymphocytes (1.2-3.4) 10^3/uL 1.83 Absolute Monocytes (0.1-0.8) 10^3/uL 0.84 H Absolute Eosinophils (0.0-0.7) 10^3/uL 0.25 Absolute Basophils (0.0-0.2) 10^3/uL 0.08 PT (9.1-11.1) sec 10.8 INR (0.9-1.1) 1.1 APTT (20.6-30.2) sec 24.4 D-Dimer (<500) ng/mlFEU 1685 H VBG pH (7.31-7.41) 7.42 H VBG pCO2 (41-51) mmHg 42 VBG pO2 mmHg 36 VBG HCO3 (23-28) mmol/L 27 VBG Total CO2 (24-29) mmol/L 23 L VBG O2 Saturation % 72 VBG Base Excess (-2-3) mmol/L 2 VBG Lactate (<or=2.0) mmol/L 2.5 H* Sodium (136-145) mmol/L 139 Potassium (3.5-5.1) mmol/L 3.4 L Chloride (98-107) mmol/L 102 Carbon Dioxide (20.0-31.0) mmol/L 26.6 Anion Gap (3-11) mmol/L 10.4 BUN (9-23) mg/dL 15 Creatinine (0.73-1.18) mg/dL 1.03 Est GFR (CKD-EPI 2020) (mL/min/1.73m2) 70.38 Glucose (74-106) mg/dL 112 H Calcium (8.3-10.6) mg/dL 9.4 Magnesium (1.6-2.6) mg/dL 2.0 Total Bilirubin (0.2-1.2) mg/dL 0.6 AST (<34) U/L 24 ALT (10-49) U/L 23 Alkaline Phosphatase (46-116) U/L 89 Troponin I (<54) ng/L 32 NT-Pro-B Natriuret Pep (<300) pg/mL 1399 H Total Protein (5.7-8.2) g/dL 8.1 Albumin (3.2-5.0) g/dL 4.5 Lipase (<53) U/L 40 Urine Color (Yellow) Yellow Urine Clarity (Clear) Clear Urine pH (5-8) 7.0 Ur Specific [place] (1.005-1.025) 1.025 Urine Protein (Neg-Trace) mg/dL 30 H Urine Ketones (Negative) mg/dL Negative Urine Blood (Negative) Negative Urine Nitrite (Negative) Negative Urine Bilirubin (Negative) Negative Urine Urobilinogen (Up to 0.2) mg/dL 0.2 Ur Leukocyte Esterase (Negative) Negative Urine RBC (0-2) HPF Negative Urine WBC (0-5) HPF Negative Ur Epithelial Cells (Negative) HPF Rare Urine Crystals (Negative) HPF Negative Urine Bacteria (Negative) HPF Rare Urine Casts (Negative) LPF 0-2 Hyaline Urine Mucus (Negative) Trace Ur Culture Indicated? No Urine Glucose (Negative) mg/dL 100 H Range/Units 07/12/25 07/12/25 07/12/25 01:18 02:27 03:26 WBC (4.4-10.8) 10^3/uL RBC (4.36-5.78) 10^6/uL Hgb (13.5-17.5) g/dL Hct (40.0-50.0) % MCV (80-95) fL MCH (27.0-33.0) pg MCHC (32.0-36.0) % RDW (11.8-14.1) % Plt Count (130-400) 10^3/uL MPV (8.0-11.0) fL Immature Gran % % Neutrophils % % Lymphocytes % % Monocytes % % Eosinophils % % Basophils % % Nucleated RBC % (0.0-0.3) % Absolute Neutrophils (1.2-6.7) 10^3/uL Absolute Lymphocytes (1.2-3.4) 10^3/uL Absolute Monocytes (0.1-0.8) 10^3/uL Absolute Eosinophils (0.0-0.7) 10^3/uL Absolute Basophils (0.0-0.2) 10^3/uL PT (9.1-11.1) sec INR (0.9-1.1) APTT (20.6-30.2) sec D-Dimer (<500) ng/mlFEU VBG pH (7.31-7.41) VBG pCO2 (41-51) mmHg VBG pO2 mmHg VBG HCO3 (23-28) mmol/L VBG Total CO2 (24-29) mmol/L VBG O2 Saturation % VBG Base Excess (-2-3) mmol/L VBG Lactate (<or=2.0) mmol/L 1.3 Sodium (136-145) mmol/L Potassium (3.5-5.1) mmol/L Chloride (98-107) mmol/L Carbon Dioxide (20.0-31.0) mmol/L Anion Gap (3-11) mmol/L BUN (9-23) mg/dL Creatinine (0.73-1.18) mg/dL Est GFR (CKD-EPI 2020) (mL/min/1.73m2) Glucose (74-106) mg/dL Calcium (8.3-10.6) mg/dL Magnesium (1.6-2.6) mg/dL Total Bilirubin (0.2-1.2) mg/dL AST (<34) U/L ALT (10-49) U/L Alkaline Phosphatase (46-116) U/L Troponin I (<54) ng/L 28 28 NT-Pro-B Natriuret Pep (<300) pg/mL Total Protein (5.7-8.2) g/dL Albumin (3.2-5.0) g/dL Lipase (<53) U/L Urine Color (Yellow) Urine Clarity (Clear) Urine pH (5-8) Ur Specific [place] (1.005-1.025) Urine Protein (Neg-Trace) mg/dL Urine Ketones (Negative) mg/dL Urine Blood (Negative) Urine Nitrite (Negative) Urine Bilirubin (Negative) Urine Urobilinogen (Up to 0.2) mg/dL Ur Leukocyte Esterase (Negative) Urine RBC (0-2) HPF Urine WBC (0-5) HPF Ur Epithelial Cells (Negative) HPF Urine Crystals (Negative) HPF Urine Bacteria (Negative) HPF Urine Casts (Negative) LPF Urine Mucus (Negative) Ur Culture Indicated? Urine Glucose (Negative) mg/dL Critical Care Time Critical Care Time Critical Care Time: Yes Total Critical Care Time: 32 Attestation: Due to a high probability of clinically significant, life threatening deterioration, the patient required my highest level of preparedness to intervene emergently and I personally spent this critical care time directly and personally managing the patient. This critical care time included obtaining a history; examining the patient; pulse oximetry; ordering and review of studies; arranging urgent treatment with development of a management plan; evaluation of patient's response to treatment; frequent reassessment; and, discussions with other providers. This critical care time was performed to assess and manage the high probability of imminent, life-threatening deterioration that could result in multi-organ failure. It was exclusive of separately billable procedures and treating other patients PFSH All Active Problems (Updated 07/12/25 @ 03:50 by Kelly Aponte MD) History of complete heart block (Acute) History of ST elevation myocardial infarction (STEMI) (Acute) Leukocytosis (Acute) Elevated lactic acid level (Acute) Near syncope (Acute) COPD (chronic obstructive pulmonary disease) (Chronic) Bilateral sensorineural hearing loss (Acute) Bladder cancer (Acute) Elevated PSA (Acute) BPH w urinary obs/LUTS (Acute) Acute appendicitis (Acute) Medical History (Updated 07/12/25 @ 03:50 by Kelly Aponte MD) Myocardial infarct Contraindication to percutaneous coronary intervention (PCI) Gross hematuria Vitamin D deficiency Erectile dysfunction Nephrolithiasis HLD (hyperlipidemia) Olecranon bursitis Hypertension Vitiligo Mild anemia Hematuria Surgical History (Updated 10/23/17 @ 10:33 by Danii Eng) Appendectomy (10/17/17) Social History Smoking/Tobacco Use Status: Former Tobacco Use Smoking risk assessment performed?: Yes Alcohol Intake: current Alcohol Intake frequency: 0-2 drinks per day Drug use: Never Substance use type: does not use Housing: house Do you feel safe at home: Yes Do you feel safe in your relationship?: Yes POCUS Exam (ED) Limited Cardiac Exam DATE OF EXAM: 07/12/25 TIME OF EXAM: 03:30 PROVIDER THAT PERFORMED THE STUDY: Kelly Aponte REASON FOR EXAM: Syncope (near syncope) VISUALIZED STRUCTURES: Four Chambers VIEW OBTAINED: Apical 4-Chamber, Parasternal long-axis, Parasternal short-axis and Subxiphoid PERTINENT FINDINGS/IMPRESSION: No pericardial effusion Exam complete
[2025-07-12 00:27] LABS: Abs Immature Grans 0.09 10^3/uL (0.0-0.06); HCT 52.7 % (40.0-50.0); HGB 17.6 g/dL (13.5-17.5); Immature Grans % 0.5 %; MCH 29.3 pg (27.0-33.0); MCHC 33.4 % (32.0-36.0); MCV 88 fL (80-95); MPV 10.5 fL (8.0-11.0); Platelet Count 322 10^3/uL (130-400); RBC 6.01 10^6/uL (4.36-5.78); RDW 14.1 % (11.8-14.1); RDW-SD 45.4 fL; WBC 16.53 10^3/uL (4.4-10.8)
[2025-07-12 00:41] LABS: INR 1.1 (0.9-1.1); PTT Activated 24.4 sec (20.6-30.2); Prothrombin Time 10.8 sec (9.1-11.1)
[2025-07-12 00:42] LABS: Lipase 40 U/L (<53); Magnesium 2.0 mg/dL (1.6-2.6); Troponin I 32 ng/L (<54)
[2025-07-12 00:44] LABS: ALT 23 U/L (10-49); AST 24 U/L (<34); Albumin 4.5 g/dL (3.2-5.0); Alkaline Phosphatase 89 U/L (46-116); Anion Gap 10.4 mmol/L (3-11); BUN 15 mg/dL (9-23); Bilirubin, Total 0.6 mg/dL (0.2-1.2); CO2 26.6 mmol/L (20.0-31.0); Calcium 9.4 mg/dL (8.3-10.6); Chloride 102 mmol/L (98-107); Glucose 112 mg/dL (74-106); Potassium 3.4 mmol/L (3.5-5.1); Sodium 139 mmol/L (136-145); Total Protein 8.1 g/dL (5.7-8.2)
--- NOTE | 2025-07-12 00:46 | DI.RAD_ITS ---
Exam(s) XR CHEST 2V PA LATERAL EXAM: XR CHEST 2V PA LATERAL CLINICAL HISTORY: Chest pain TECHNIQUE: 2D digital imaging was performed. Two views. COMPARISON: CR XR PORTABLE CHEST AP from 02/28/2025 FINDINGS: HEART: Normal size. Aorta: Not dilated. PULMONARY VASCULATURE: Normal. MEDIASTINUM: Unremarkable. LUNGS: Emphysematous changes. No visible infiltrate. PLEURAL SPACE: No pleural effusion or pneumothorax. Calcified pleural plaques. BONE:Unremarkable for age. SOFT TISSUES: Unremarkable. IMPRESSION: Emphysematous changes and pleural plaques. No acute abnormality. The preliminary [facility] report was reviewed. DATA REPOSITORY: RADIATION DOSE DELIVERED:
[2025-07-12 00:52] LABS: D-Dimer 1685 ng/mlFEU (<500)
--- NOTE | 2025-07-12 00:55 | DI.[facility]_ITS ---
PROCEDURE INFORMATION: Exam: XR Chest Exam date and time: 07/12/2025 00:39 Age: 75 years old Clinical indication: Chest pressure; Chest pain TECHNIQUE: Imaging protocol: Radiologic exam of the chest. Views: 2 views. COMPARISON: CR XR PORTABLE CHEST AP 02/28/2025 19:02 FINDINGS: Lungs: Pulmonary emphysema with a few minimal right-sided patchy airspace opacities without definite lateral correlate. Pleural spaces: Scarring of the costophrenic angles without significant effusion. No pneumothorax. Heart/Mediastinum: Diminution of the cardiac silhouette in the setting of emphysema. Bones/joints: No acute fracture. IMPRESSION: Pulmonary emphysema with a few minimal right-sided patchy airspace opacities without definite lateral correlate. Correlate clinically for a minor pneumonitis or early pneumonia. Dictated and Authenticated by: Larisa Mason MD. Orderin Fadi Mendoza MD
[2025-07-12] MEDS: Normal Saline 1,000 ML 1000 ML IV ×2 (00:58→03:01)
[2025-07-12] MEDS: Potassium Chloride 20 MEQ TABCR 40 MEQ PO (00:58)
[2025-07-12 00:59] LABS: BE (Venous) 2 mmol/L (-2-3); HCO3 (Venous) 27 mmol/L (23-28); O2 Sat (Venous) 72 %; TCO2 (Venous) 23 mmol/L (24-29); pCO2 (Venous) 42 mmHg (41-51); pO2 (Venous) 36 mmHg
[2025-07-12 01:26] LABS: Glucose 100 mg/dL (Negative)
[2025-07-12 01:33] LABS: C & S Indicated? No; RBC Negative HPF (0-2); WBC Negative HPF (0-5)
[2025-07-12 01:40] LABS: Troponin I 28 ng/L (<54)
[2025-07-12] MEDS: Omnipaque 350 MG/ML 100 ML BTL IJ (02:08)
[2025-07-12] MEDS: Normal Saline - Diluent 50 ML VIAL IJ (02:09)
[2025-07-12] MEDS: Normal Saline Flush 10 ML SYR IVP ×2 (02:10→07:34)
--- NOTE | 2025-07-12 02:13 | DI.CT_ITS ---
Exam(s) CT CHEST PE CTA EXAM: CT CHEST PE CTA CLINICAL HISTORY: near syncope, elevated dimer. TECHNIQUE: Imaging Protocol: Axial CT angiography was performed with multi- slice acquisition and multi-planar reconstructions as well as axial, coronal and sagittal MIP reconstructions. Computer aided detection (CAD) was utilized. CONTRAST MATERIAL: Intravenous: Omnipaque 350 Contrast volume:75 ml COMPARISON: CT CT ABDOMEN PELVIS W from 08/17/2020 CR,XR XR CHEST 2V PA LATERAL from 07/12/2025 FINDINGS: Pulmonary Arteries: No evidence of filling defect to suggest pulmonary emboli. Mediastinum and Sada: No dominant adenopathy or fluid collection. Pulmonary parenchyma: Bulla left lung apex. Moderate centrilobular emphysematous changes. No consolidation or dominant measurable mass. Pleura: No effusion or pneumothorax. Multi focal bilateral calcified and non calcified pleural plaques. Heart: The heart is not dilated. No coronary artery calcifications are seen. Aorta: Thoracic aorta non-dilated. No dissection. Mild calcification at the aortic valve. Upper abdomen: No acute findings. Small hiatal hernia. Stable bilateral adrenal thickening. Stable tiny liver hypodensities. Bones: Following osteophytes consistent with DISH. Tubes, Catheters, and Lines: None Soft tissues: Unremarkable. IMPRESSION: No evidence of pulmonary embolism. Emphysematous changes and pleural plaques. The preliminary [facility] report was reviewed. RADIATION DOSE DELIVERED: Total DLP DATA REPOSITORY: All CT scans at this facility are submitted to the National Radiology Data Registry (NRDR) Dose Index Registry (DIR) with the [employer] ([employer]). RADIATION OPTIMIZATION: All CT scans at this facility use at least one of these dose optimization techniques: automated exposure control; mA and/or kV adjustment per patient size (includes targeted exams where dose is matched to clinical indication); or iterative reconstruction.
[2025-07-12] MEDS: Calcium Carbonate *TUMS* 500 MG CHEW 1000 MG PO (02:44)
--- NOTE | 2025-07-12 03:24 | DI.[facility]_ITS ---
PROCEDURE INFORMATION: Exam: CTA Chest With Contrast Exam date and time: 07/12/2025 1:54 AM Age: 75 years old Clinical indication: Pain; Other: Near syncope, elevated dimer; Chest pressure TECHNIQUE: Imaging protocol: Computed tomographic angiography of the chest with contrast. Exam focused on the arteries. 3D rendering (Not supervised by radiologist): MIP and/or 3D reconstructed images were created by the technologist. Radiation optimization: All CT scans at this facility use at least one of these dose optimization techniques: automated exposure control; mA and/or kV adjustment per patient size (includes targeted exams where dose is matched to clinical indication); or iterative reconstruction. Contrast material: [id number]; Contrast volume: 75 ml; Contrast route: INTRAVENOUS (IV); COMPARISON: CR XR CHEST 2V PA LATERAL 07/12/2025 12:39 AM FINDINGS: Pulmonary arteries: Normal. No pulmonary emboli. Aorta: Atherosclerotic aorta. No aneurysm or acute aortic syndrome. Lungs: Moderate emphysema with bullous change in the left lung apex. Mild multifocal peripheral pulmonary scarring. Pleural spaces: Multifocal bilateral calcified pleural plaques compatible with prior asbestos exposure. Heart: Unremarkable. No pericardial effusion. Esophagus: Esophagus is unremarkable. Lymph nodes: Unremarkable. No enlarged lymph nodes. Diaphragm: Small hiatal hernia. Liver: Subcentimeter hypoattenuating focus in the right lobe of the liver is indeterminate, potentially an incidental cyst. Adrenal glands: Bilateral adrenal adenomas. Bones/joints: Unremarkable. No acute fracture. Soft tissues: Unremarkable. IMPRESSION: No acute findings. Dictated and Authenticated by: Rakan Artis MD. Orderin Fadi Mendoza MD
[2025-07-12 03:48] LABS: Troponin I 28 ng/L (<54)
--- NOTE | 2025-07-12 03:49 | HPE_ITS ---
Date of service: 07/12/25 Time of Service: 03:50 Assessment and Plan Assessment and plan (1) Near syncope: Status: Acute Assessment and plan: -occurred at home prior to arival -symptoms also included preceding nausea, similar to when he had his STEMI but without chest pain -may be due to intermentent heart block (Mobitz type I) that was seen on Zio patch, but reportedly had resolved leading to decision to forgoe pacemaker placement -will monitor on tele, obtain echo, and if nothing is seen DC with monitor again (2) History of complete heart block: Status: Acute Assessment and plan: -as noted above (3) History of ST elevation myocardial infarction (STEMI): Status: Acute Assessment and plan: -STEMI in April of 2025 s/p 3x stents -continue home statin, asa, plavix (4) Leukocytosis: Status: Acute Assessment and plan: -WBC up to 16 -no signs of infection -likely secondary to demargination fron near syncopal episode (5) Elevated lactic acid level: Status: Acute Assessment and plan: -LA up to 2.5, improved to 1.3 s/p IVF History of Present Illness History of Present Illness Chief Complaint: concern for heart attack N arrative: 75-year-old male with a past medical history of COPD, bladder cancer, STEMI in February 2025, and intermittent heart block that apparently self resolved who presents to the emergency department with concerns for heart attack. Patient states that 90 minutes prior to arrival he was feeling unwell, sweaty, nauseated and weak to the point where he fell to the ground but did not hit his head or lose consciousness. He states that he vomited once and described it as nonbloody nonbilious. He states he was concerned because he had similar episodes when he had his heart attack in February so this time he did not have any associated chest pain. Prior to arrival his symptoms had resolved though he thought it best to come to the emergency department to get further evaluated. He denies any headache, ongoing lightheadedness or dizziness, ongoing nausea or vomiting, fever, chest pain, shortness of breath. In the emergency department the patient was noted as initially being hypertensive with self resolved on its own in addition to being tachycardic which also resolved. Remainder of his vitals were within normal limits as well as his physical exam. CBC showed a white blood cell count of 16 the remainder of CBC and CMP were unremarkable. Chest x-ray and chest CT were also negative, EKG was without any ST elevations, ST depressions or T wave inversions, and troponins were 3 times negative. However, patient's lactic acid was noted as being elevated to 2.5 which improved to 1.8 after IV fluid resuscitation. Given documented history of intermittent Mobitz type I heart block, concerned that episode prior to arrival may be related to heart block. Therefore, emergency room provider paged hospitalist for admission for patient with near syncopal episode with concern for heart block. Review of Systems All systems reviewed & are unremarkable except as noted in HPI and below PFSH All Active Problems (Updated 07/12/25 @ 03:50 by Kelly Aponte MD) History of complete heart block (Acute) History of ST elevation myocardial infarction (STEMI) (Acute) Leukocytosis (Acute) Elevated lactic acid level (Acute) Near syncope (Acute) COPD (chronic obstructive pulmonary disease) (Chronic) Bilateral sensorineural hearing loss (Acute) Bladder cancer (Acute) Elevated PSA (Acute) BPH w urinary obs/LUTS (Acute) Acute appendicitis (Acute) Medical History (Updated 07/12/25 @ 03:50 by Kelly Aponte MD) Myocardial infarct Contraindication to percutaneous coronary intervention (PCI) Gross hematuria Vitamin D deficiency Erectile dysfunction Nephrolithiasis HLD (hyperlipidemia) Olecranon bursitis Hypertension Vitiligo Mild anemia Hematuria Surgical History (Updated 10/23/17 @ 10:33 by Danii Eng) Appendectomy (10/17/17) Social History Smoking/Tobacco Use Status: Former Tobacco Use Smoking risk assessment performed?: Yes Alcohol Intake: current Alcohol Intake frequency: 0-2 drinks per day Drug use: Never Substance use type: does not use Housing: house Do you feel safe at home: Yes Do you feel safe in your relationship?: Yes Meds Allergies and Home Medications Allergies Allergy/AdvReac Type Severity Reaction Status Date / Time perfumes AdvReac Mild rhinitis Uncoded 07/12/25 00:13 Home Medications ?Medication ?Instructions ?Recorded ?Confirmed ?Type omega-3 fatty acids 1,250 mg 1,250 mg PO DAILY 08/16/ 3 07/12/25 History capsule clopidogrel 75 mg tablet 75 mg PO DAILY 03/06/2506/30 History losartan 50 mg tablet (Cozaar) 50 mg PO DAILY 07/12/25 07/12/25 History Exam Narrative Exam Narrative: Well-appearing older gentleman laying in bed in no acute distress, ANO x 4, heart regular rate rhythm, lungs good auscultation bilaterally, abdomen soft, nontender, nondistended Results Labs 07/12/25 00:16 07/12/25 00:16 Labs: Laboratory Results - last 24 hr 07/12/25 07/12/25 07/12/25 00:16 00:55 01:07 WBC 16.53 H RBC 6.01 H Hgb 17.6 H Hct 52.7 H MCV 88 MCH 29.3 MCHC 33.4 RDW 14.1 Plt Count 322 MPV 10.5 Immature Gran % 0.5 Neutrophils % 81.3 Lymphocytes % 11.1 Monocytes % 5.1 Eosinophils % 1.5 Basophils % 0.5 Nucleated RBC % 0.0 Absolute Neutrophils 13.44 H Absolute Lymphocytes 1.83 Absolute Monocytes 0.84 H Absolute Eosinophils 0.25 Absolute Basophils 0.08 PT 10.8 INR 1.1 APTT 24.4 D-Dimer 1685 H VBG pH 7.42 H VBG pCO2 42 VBG pO2 36 VBG HCO3 27 VBG Total CO2 23 L VBG O2 Saturation 72 VBG Base Excess 2 VBG Lactate 2.5 H* Sodium 139 Potassium 3.4 L Chloride 102 Carbon Dioxide 26.6 Anion Gap 10.4 BUN 15 Creatinine 1.03 Est GFR (CKD-EPI 2020) 70.38 Glucose 112 H Calcium 9.4 Magnesium 2.0 Total Bilirubin 0.6 AST 24 ALT 23 Alkaline Phosphatase 89 Troponin I 32 NT-Pro-B Natriuret Pep 1399 H Total Protein 8.1 Albumin 4.5 Lipase 40 Urine Color Yellow Urine Clarity Clear Urine pH 7.0 Ur Specific [place] 1.025 Urine Protein 30 H Urine Ketones Negative Urine Blood Negative Urine Nitrite Negative Urine Bilirubin Negative Urine Urobilinogen 0.2 Ur Leukocyte Esterase Negative Urine RBC Negative Urine WBC Negative Ur Epithelial Cells Rare Urine Crystals Negative Urine Bacteria Rare Urine Casts 0-2 Hyaline Urine Mucus Trace Ur Culture Indicated? No Urine Glucose 100 H 07/12/25 07/12/25 07/12/25 01:18 02:27 03:26 WBC RBC Hgb Hct MCV MCH MCHC RDW Plt Count MPV Immature Gran % Neutrophils % Lymphocytes % Monocytes % Eosinophils % Basophils % Nucleated RBC % Absolute Neutrophils Absolute Lymphocytes Absolute Monocytes Absolute Eosinophils Absolute Basophils PT INR APTT D-Dimer VBG pH VBG pCO2 VBG pO2 VBG HCO3 VBG Total CO2 VBG O2 Saturation VBG Base Excess VBG Lactate 1.3 Sodium Potassium Chloride Carbon Dioxide Anion Gap BUN Creatinine Est GFR (CKD-EPI 2020) Glucose Calcium Magnesium Total Bilirubin AST ALT Alkaline Phosphatase Troponin I 28 28 NT-Pro-B Natriuret Pep Total Protein Albumin Lipase Urine Color Urine Clarity Urine pH Ur Specific [place] Urine Protein Urine Ketones Urine Blood Urine Nitrite Urine Bilirubin Urine Urobilinogen Ur Leukocyte Esterase Urine RBC Urine WBC Ur Epithelial Cells Urine Crystals Urine Bacteria Urine Casts Urine Mucus Ur Culture Indicated? Urine Glucose Last Vital Signs Temp 97.4 F L 07/12/25 00:02 Pulse 88 07/12/25 02:32 Resp 25 H 07/12/25 02:31 BP 171/81 H 07/12/25 02:32 Pulse Ox 97 07/12/25 02:31 VTE Prohylaxis Risk Level: Moderate/High Risk Contraindications: None Prophylaxis: Pharmacologic Time Spent Time spent with Patient: <40 minutes Time was spent: preparing to see the patient(eg.review tests), obtaining and/or reviewing separately otained hiistory, ordering medications,tests, procedures, referring, communicating with other health healthcare prof, indepentently interpreting results, counseling the patient and care coordination
--- NOTE | 2025-07-12 04:16 | W.PC.ACHO ---
Registration Status: REG ER Primary Language: Preferred Language: Maltese ED Information & Data Chief Complaint Chest Pain 07/12/25 00:21 Triage Note PT states that he had sudden 07/12/25 00:02 onset of nausea and diphorisis that felt like the last time he had a STMI Medical / Surgical History (Last Updated 04/21/25 @ 08:10 by Francis Ott RN) Myocardial infarct Contraindication to percutaneous coronary intervention (PCI) Gross hematuria Vitamin D deficiency Erectile dysfunction Nephrolithiasis HLD (hyperlipidemia) Olecranon bursitis Hypertension Vitiligo Mild anemia Hematuria Appendectomy (10/17/17) Most Recent Vital Signs Temperature 36.3 C L 07/12/25 00:02 Temperature Source Oral 07/12/25 00:02 Pulse 90 07/12/25 04:00 Pulse 92 H 07/12/25 04:00 Respiratory Rate 17 07/12/25 04:00 Blood Pressure 152/95 H 07/12/25 03:46 Blood Pressure Mean 113 07/12/25 03:46 Pulse Oximetry 96 07/12/25 04:00 Pain Level 0 07/12/25 00:02 Allergies perfumes Adverse Reaction (Mild, Uncoded 07/12/25 00:13) rhinitis Active Medications Generic Name Dose Route Start Last Admin Trade Name Freq PRN Reason Stop Dose Admin Iohexol 100 ml 07/12/25 02:15 07/12/25 02:08 Omnipaque 350 Mg/Ml 100 Ml Btl IJ 08/11/25 23:59 75 ml DIRECTED RODRIGO Administration Sodium Chloride 50 ml 07/12/25 02:15 07/12/25 02:09 Normal Saline - Diluent 50 Ml Vial IJ 50 ml DIRECTED RODRIGO Administration Sodium Chloride 0 ml 07/12/25 02:07 07/12/25 02:10 Normal Saline Flush 10 Ml Syr IVP 10 ml PRN PRN Administration IV IV Catheter Type [Left Saline Lock Antecubital] IV Catheter Gauge [Left 18 Antecubital] Diagnostics 07/12/25 07/12/25 07/12/25 Range/Units 03:26 02:27 01:18 WBC (4.4-10.8) 10^3/uL RBC (4.36-5.78) 10^6/uL Hgb (13.5-17.5) g/dL Hct (40.0-50.0) % MCV (80-95) fL MCH (27.0-33.0) pg MCHC (32.0-36.0) % RDW (11.8-14.1) % Plt Count (130-400) 10^3/uL MPV (8.0-11.0) fL Immature Gran % % Neutrophils % % Lymphocytes % % Monocytes % % Eosinophils % % Basophils % % Nucleated RBC % (0.0-0.3) % Absolute Neutrophils (1.2-6.7) 10^3/uL Absolute Lymphocytes (1.2-3.4) 10^3/uL Absolute Monocytes (0.1-0.8) 10^3/uL Absolute Eosinophils (0.0-0.7) 10^3/uL Absolute Basophils (0.0-0.2) 10^3/uL PT (9.1-11.1) sec INR (0.9-1.1) APTT (20.6-30.2) sec D-Dimer (<500) ng/mlFEU VBG pH (7.31-7.41) VBG pCO2 (41-51) mmHg VBG pO2 mmHg VBG HCO3 (23-28) mmol/L VBG Total CO2 (24-29) mmol/L VBG O2 Saturation % VBG Base Excess (-2-3) mmol/L VBG Lactate 1.3 (<or=2.0) mmol/L Sodium (136-145) mmol/L Potassium (3.5-5.1) mmol/L Chloride (98-107) mmol/L Carbon Dioxide (20.0-31.0) mmol/L Anion Gap (3-11) mmol/L BUN (9-23) mg/dL Creatinine (0.73-1.18) mg/dL Est GFR (CKD-EPI 2020) (mL/min/1.73m2) Glucose (74-106) mg/dL Calcium (8.3-10.6) mg/dL Magnesium (1.6-2.6) mg/dL Total Bilirubin (0.2-1.2) mg/dL AST (<34) U/L ALT (10-49) U/L Alkaline Phosphatase (46-116) U/L Troponin I 28 28 (<54) ng/L NT-Pro-B Natriuret Pep (<300) pg/mL Total Protein (5.7-8.2) g/dL Albumin (3.2-5.0) g/dL Lipase (<53) U/L Urine Color (Yellow) Urine Clarity (Clear) Urine pH (5-8) Ur Specific [place] (1.005-1.025) Urine Protein (Neg-Trace) mg/dL Urine Ketones (Negative) mg/dL Urine Blood (Negative) Urine Nitrite (Negative) Urine Bilirubin (Negative) Urine Urobilinogen (Up to 0.2) mg/dL Ur Leukocyte Esterase (Negative) Urine RBC (0-2) HPF Urine WBC (0-5) HPF Ur Epithelial Cells (Negative) HPF Urine Crystals (Negative) HPF Urine Bacteria (Negative) HPF Urine Casts (Negative) LPF Urine Mucus (Negative) Ur Culture Indicated? Urine Glucose (Negative) mg/dL Path Cons Comment 07/12/25 07/12/25 07/12/25 Range/Units 01:07 00:55 00:16 WBC 16.53 H (4.4-10.8) 10^3/uL RBC 6.01 H (4.36-5.78) 10^6/uL Hgb 17.6 H (13.5-17.5) g/dL Hct 52.7 H (40.0-50.0) % MCV 88 (80-95) fL MCH 29.3 (27.0-33.0) pg MCHC 33.4 (32.0-36.0) % RDW 14.1 (11.8-14.1) % Plt Count 322 (130-400) 10^3/uL MPV 10.5 (8.0-11.0) fL Immature Gran % 0.5 % Neutrophils % 81.3 % Lymphocytes % 11.1 % Monocytes % 5.1 % Eosinophils % 1.5 % Basophils % 0.5 % Nucleated RBC % 0.0 (0.0-0.3) % Absolute Neutrophils 13.44 H (1.2-6.7) 10^3/uL Absolute Lymphocytes 1.83 (1.2-3.4) 10^3/uL Absolute Monocytes 0.84 H (0.1-0.8) 10^3/uL Absolute Eosinophils 0.25 (0.0-0.7) 10^3/uL Absolute Basophils 0.08 (0.0-0.2) 10^3/uL PT 10.8 (9.1-11.1) sec INR 1.1 (0.9-1.1) APTT 24.4 (20.6-30.2) sec D-Dimer 1685 H (<500) ng/mlFEU VBG pH 7.42 H (7.31-7.41) VBG pCO2 42 (41-51) mmHg VBG pO2 36 mmHg VBG HCO3 27 (23-28) mmol/L VBG Total CO2 23 L (24-29) mmol/L VBG O2 Saturation 72 % VBG Base Excess 2 (-2-3) mmol/L VBG Lactate 2.5 H* (<or=2.0) mmol/L Sodium 139 (136-145) mmol/L Potassium 3.4 L (3.5-5.1) mmol/L Chloride 102 (98-107) mmol/L Carbon Dioxide 26.6 (20.0-31.0) mmol/L Anion Gap 10.4 (3-11) mmol/L BUN 15 (9-23) mg/dL Creatinine 1.03 (0.73-1.18) mg/dL Est GFR (CKD-EPI 2020) 70.38 (mL/min/1.73m2) Glucose 112 H (74-106) mg/dL Calcium 9.4 (8.3-10.6) mg/dL Magnesium 2.0 (1.6-2.6) mg/dL Total Bilirubin 0.6 (0.2-1.2) mg/dL AST 24 (<34) U/L ALT 23 (10-49) U/L Alkaline Phosphatase 89 (46-116) U/L Troponin I 32 (<54) ng/L NT-Pro-B Natriuret Pep 1399 H (<300) pg/mL Total Protein 8.1 (5.7-8.2) g/dL Albumin 4.5 (3.2-5.0) g/dL Lipase 40 (<53) U/L Urine Color Yellow (Yellow) Urine Clarity Clear (Clear) Urine pH 7.0 (5-8) Ur Specific [place] 1.025 (1.005-1.025) Urine Protein 30 H (Neg-Trace) mg/dL Urine Ketones Negative (Negative) mg/dL Urine Blood Negative (Negative) Urine Nitrite Negative (Negative) Urine Bilirubin Negative (Negative) Urine Urobilinogen 0.2 (Up to 0.2) mg/dL Ur Leukocyte Esterase Negative (Negative) Urine RBC Negative (0-2) HPF Urine WBC Negative (0-5) HPF Ur Epithelial Cells Rare (Negative) HPF Urine Crystals Negative (Negative) HPF Urine Bacteria Rare (Negative) HPF Urine Casts 0-2 Hyaline (Negative) LPF Urine Mucus Trace (Negative) Ur Culture Indicated? No Urine Glucose 100 H (Negative) mg/dL Path Cons Comment Pending Intake and Output - 24 Hour Total 07/11/25 23:59 thru 07/12/25 01:50 Intake Total 866.667 Balance 866.667 Weight 81.647 kg Intake: IV 866.667 Falls Risk Assessment History of Falls No History 07/12/25 00:06 Contributing Factors No Factors 07/12/25 00:06 Ambulatory Aids Independent 07/12/25 00:06 Tubes/Lines None 07/12/25 00:06 Gait Evaluation No gait disturbance 07/12/25 00:06 Cognition No cognitive impairment 07/12/25 00:06 Fall Total Score 0 07/12/25 00:06 Level of Risk Standard/Low Risk 07/12/25 00:06 Problems (Last Updated 04/21/25 @ 08:10 by Francis Ott RN) History of complete heart block (Acute) History of ST elevation myocardial infarction (STEMI) (Acute) Leukocytosis (Acute) Elevated lactic acid level (Acute) Near syncope (Acute) Attestation Statement: By documenting the first initial, last name, and credentials of the reporting nurse below, both parties acknowledge that all relevant information regarding the patient handoff has been communicated, and that all questions have been addressed to ensure continuity and safety of care. Additional Patient Information/Comments: nausea/diaphoresis (similar to last STEMI), near syncopal episode. No chest pain. Trops neg x 3. Halter monitor showed a heart block with bradycardia. c/o acid reflux and vomited. giving zofran. 2L NS boluses. 324 aspirin. TUMS. 40mEq potassium. alert and oriented, lightheaded when standing up. Walked to room from waiting room. Report Received From: Rajesh Fenton RN
[2025-07-12] MEDS: Ondansetron 4 MG/2 ML VIAL IVP (04:17)
[2025-07-12] MEDS: Pantoprazole 40 MG TABCR PO (04:51)
[2025-07-12 07:18] LABS: HCT 44.4 % (40.0-50.0); HGB 15.2 g/dL (13.5-17.5); MCH 29.9 pg (27.0-33.0); MCHC 34.2 % (32.0-36.0); MCV 87 fL (80-95); MPV 11.1 fL (8.0-11.0); Platelet Count 288 10^3/uL (130-400); RBC 5.09 10^6/uL (4.36-5.78); RDW 14.1 % (11.8-14.1); RDW-SD 45.6 fL; WBC 9.69 10^3/uL (4.4-10.8)
[2025-07-12 07:23] LABS: Anion Gap 7.2 mmol/L (3-11); BUN 17 mg/dL (9-23); CO2 24.8 mmol/L (20.0-31.0); Calcium 8.6 mg/dL (8.3-10.6); Chloride 108 mmol/L (98-107); Glucose 115 mg/dL (74-106); Potassium 4.5 mmol/L (3.5-5.1); Sodium 140 mmol/L (136-145)
[2025-07-12] MEDS: Aspirin E.C. 81 MG TABEC PO (07:33)
[2025-07-12] MEDS: Clopidogrel 75 MG TAB PO (07:34)
[2025-07-12] MEDS: Enoxaparin 40 MG/0.4 ML SYR SC (07:34)
--- NOTE | 2025-07-12 10:07 | PDOC.CMIN ---
Date of service: 07/12/25 Time of Service: 10:07 Care Management Initial Assmt Initial Assessment Reason for Hospitalization: near syncope Functional Status/Living Situation Town of Residence: [facility] Medication Management: No Issues/Barriers identified Advance Directives Advance Directives: Do you have an Advance Directive: N 04/09/25, 14:24 AD On File at [facility]: N 04/09/25, 14:24 Date Asked 01/10/25 04/09/25, 14:24 AD Date Reviewed COLST On File at [facility] COLST Date Scanned Code Status Resuscitation Status Full Code Insurance Coverage/Financial Issues Insurance: Medicare [facility] Care Team Visit Care Team Role Provider Type Fly Gong MD MD [facility] STAFF PHYSICIAN Mehdi Vanegas Primary Care Provider NON-[facility] STAFF PHYSICIAN Kelly Aponte MD Emergency Provider [facility] PHYSICIAN Maged Waller MD Admit Provider [facility] PHYSICIAN Attending Provider Discharge Potential Discharge Needs: PCP F/U Appt and Other (Cardiology and [facility]) Anticipated Barriers to Discharge: None Identified Patient/Family Education Needs: Review discharge instructions, discuss Ask Me Three Transportation: Private vehicle Plan: Anticipate Sukhjinder will be discharged home with no new services when medically cleared. He will follow up with his community providers and plan of care and transport with a friend. CM will follow and continue to assess for discharge needs. Social Determinants of Health Screening Will the Patient Participate in the Screening?: Declined to provide PFSH All Active Problems (Updated 07/12/25 @ 03:50 by Kelly Aponte MD) History of complete heart block (Acute) History of ST elevation myocardial infarction (STEMI) (Acute) Leukocytosis (Acute) Elevated lactic acid level (Acute) Near syncope (Acute) COPD (chronic obstructive pulmonary disease) (Chronic) Bilateral sensorineural hearing loss (Acute) Bladder cancer (Acute) Elevated PSA (Acute) BPH w urinary obs/LUTS (Acute) Acute appendicitis (Acute) Medical History (Updated 07/12/25 @ 03:50 by Kelly Aponte MD) Myocardial infarct Contraindication to percutaneous coronary intervention (PCI) Gross hematuria Vitamin D deficiency Erectile dysfunction Nephrolithiasis HLD (hyperlipidemia) Olecranon bursitis Hypertension Vitiligo Mild anemia Hematuria Surgical History (Updated 10/23/17 @ 10:33 by Danii Eng) Appendectomy (10/17/17) Social History Smoking/Tobacco Use Status: Former Tobacco Use Smoking risk assessment performed?: Yes Alcohol Intake: current Alcohol Intake frequency: 0-2 drinks per day Drug use: Never Substance use type: does not use Housing: house Do you feel safe at home: Yes Do you feel safe in your relationship?: Yes
--- NOTE | 2025-07-12 13:00 | W.PM.DS.N ---
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 at the time and was about to do the driveway Previous 30 day cardiac monitoring showed Mobitz type I - Previous pursuit of pacemaker diverted as symptoms had resolved Lengthy discussion at bedside about next steps He needs to see a medical practice administrator, and most likely can get in to see the [facility] medical practice administrator who did his cath in February - Will need new referral to bag bleacher - Patient feels that he can make these appointment - He also wants to defer echocardiogram to the outpatient setting No events on telemetry overnight 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 Will discharge home with return precautions, [place] and expects he is able to drive himself to [facility] for appointments Meanwhile he agrees to stay hydrated and leave snow blowing to others (2) History of ST elevation myocardial infarction (STEMI): Status: Acute Asessment and Plan: February 2025 and April 2025 catheterizations He stopped DAPT after one month and continued only with clopidogrel Restarted aspirin, statin (3) Leukocytosis: Status: Resolved (4) Elevated lactic acid level: Status: Resolved Discharge Plan Disposition Patient Disposition: Home Anticipated Discharge Date/Time: 07/12/25 12:50 Condition: Fair Discharge Details Reason For Visit: Atypical chest pain Admit Date/Time: 07/12/25 03:48 Admit Provider: Maged Waller Attending Provider: Maged Waller Primary Care Provider: Mehdi Vanegas Hospital Course Hospital Course: Ankush Beth is a 75 year old man presenting July 11 after a syncopal episode at home, with diuresis and vomiting. Patient reportedly had a STEMI in February 2025. In the ED, he was noted to have unremarkable EKG and negative troponins. Patient has had a recommendation to see his medical practice administrator for possible ICD/pacer in the past. He had no cardiac monitoring events overnight and feels well. At this time, a 30 day cardiac monitoring patch has been placed, and the patient has chosen to see his medical practice administrator next week for followup, in lieu of waiting till Monday for an echocardiogram. Recommendations for Follow Up Recommended tests to be ordered by follow up provider: echocardiogram Home Meds and New Rx's Prescriptions: New aspirin 81 mg Tablet,Delayed Release (Dr/Ec) 81 mg PO DAILY Qty: 30 0RF rosuvastatin 20 mg Tablet 40 mg PO QPM Qty: 60 0RF Continued omega-3 fatty acids 1,250 mg capsule 1,250 mg PO DAILY clopidogrel 75 mg tablet 75 mg PO DAILY losartan [Cozaar] 50 mg tablet 50 mg PO DAILY Discharge Instructions Instructions: Angina (DC) Stand Alone Forms: Portal Information, Nursing Discharge Form Referrals: Mehdi Vanegas [Primary Care Provider, Medicine] Referral Note: Please call your primary care office on Monday to schedule a follow up appointment in 1-2 weeks. Activity:: Activity as Tolerated Equipment/Supplies:: Ziopatch placed Diet:: As Tolerated Discharge Orders Discharge Orders: Discharge Order (Routine); Ordered 07/12/25 Ordered By: Fly Gong Other Ambulatory Orders: Cardiac Event Recorder (Routine) Timeframe: 30 Days Facility: [facility] - Location: Respiratory Therapy Ordered By: Fly Gong Discharge Data Discharge Date/Time-TO BE ENTERED AT DEPARTURE: 07/12/25 14:01 DS: Summary Time Spent with Patient providing and/or coordinating discharge services: Greater than 30 minutes Status at Discharge Functional status at discharge: independent ambulation Overall status at discharge: patient is back to baseline Mental Status: mental status grossly normal Speech and Movement: speech and movement normal Mood: congruent mood Affect: normal affect Exam Narrative Exam Narrative: General: This is a pleasant man in no distress HEENT: Normocephalic, atraumatic CV: RRR Resp: CTAB Abd: soft, NTND MSK: voluntary motion x4 Neuro: awake, alert, no focal deficits Psych Mental Status: mental status grossly normal Speech and Movement: speech and movement normal Mood: congruent mood Affect: normal affect DS: Data Vitals/I&O Vitals and I&O: Vital Signs Temperature 36.4 C L 07/12/25 07:18 Temperature Source Temporal Artery Scan 07/12/25 07:18 Pulse 84 07/12/25 07:18 Pulse Rhythm Regular 07/12/25 04:36 Pulse 99 H 07/12/25 04:20 Respiratory Rate 16 07/12/25 07:18 Respiratory Effort Non-Labored 07/12/25 04:36 Respiratory Depth Normal 07/12/25 04:36 Respiratory Pattern Tachypnea 07/12/25 04:36 Blood Pressure 116/60 07/12/25 07:18 Blood Pressure Mean 78 07/12/25 07:18 Pulse Oximetry 95 07/12/25 07:18 Oxygen Delivery Method Room Air 07/12/25 07:18 Oxygen Flow Rate 0 07/12/25 07:18 Pain Level 0 07/12/25 07:18 Intake & Output 07/11/25 07/12/25 07/12/25 23:59 11:59 23:59 Intake Total 3106.667 / 3106.667 Output Total 500 / 500 Balance 2606.667 / 2606.667 Weight 80.1 kg Intake: IV 2866.667 / 2866.667 Oral 240 / 240 Output: Urine 500 / 500 Other: Urine Color Yellow Urine Appearance Clear Data Completed and Pending Pending Labs at Discharge: 07/12/25 07/12/25 07/12/25 00:16 00:55 01:07 WBC 16.53 H RBC 6.01 H Hgb 17.6 H Hct 52.7 H MCV 88 MCH 29.3 MCHC 33.4 RDW 14.1 Plt Count 322 MPV 10.5 Immature Gran % 0.5 Neutrophils % 81.3 Lymphocytes % 11.1 Monocytes % 5.1 Eosinophils % 1.5 Basophils % 0.5 Nucleated RBC % 0.0 Absolute Neutrophils 13.44 H Absolute Lymphocytes 1.83 Absolute Monocytes 0.84 H Absolute Eosinophils 0.25 Absolute Basophils 0.08 PT 10.8 INR 1.1 APTT 24.4 D-Dimer 1685 H VBG pH 7.42 H VBG pCO2 42 VBG pO2 36 VBG HCO3 27 VBG Total CO2 23 L VBG O2 Saturation 72 VBG Base Excess 2 VBG Lactate 2.5 H* Sodium 139 Potassium 3.4 L Chloride 102 Carbon Dioxide 26.6 Anion Gap 10.4 BUN 15 Creatinine 1.03 Est GFR (CKD-EPI 2020) 70.38 Glucose 112 H Calcium 9.4 Magnesium 2.0 Total Bilirubin 0.6 AST 24 ALT 23 Alkaline Phosphatase 89 Troponin I 32 NT-Pro-B Natriuret Pep 1399 H Total Protein 8.1 Albumin 4.5 Lipase 40 Urine Color Yellow Urine Clarity Clear Urine pH 7.0 Ur Specific [place] 1.025 Urine Protein 30 H Urine Ketones Negative Urine Blood Negative Urine Nitrite Negative Urine Bilirubin Negative Urine Urobilinogen 0.2 Ur Leukocyte Esterase Negative Urine RBC Negative Urine WBC Negative Ur Epithelial Cells Rare Urine Crystals Negative Urine Bacteria Rare Urine Casts 0-2 Hyaline Urine Mucus Trace Ur Culture Indicated? No Urine Glucose 100 H Path Cons Comment Pending 07/12/25 07/12/25 07/12/25 01:18 02:27 03:26 WBC RBC Hgb Hct MCV MCH MCHC RDW Plt Count MPV Immature Gran % Neutrophils % Lymphocytes % Monocytes % Eosinophils % Basophils % Nucleated RBC % Absolute Neutrophils Absolute Lymphocytes Absolute Monocytes Absolute Eosinophils Absolute Basophils PT INR APTT D-Dimer VBG pH VBG pCO2 VBG pO2 VBG HCO3 VBG Total CO2 VBG O2 Saturation VBG Base Excess VBG Lactate 1.3 Sodium Potassium Chloride Carbon Dioxide Anion Gap BUN Creatinine Est GFR (CKD-EPI 2020) Glucose Calcium Magnesium Total Bilirubin AST ALT Alkaline Phosphatase Troponin I 28 28 NT-Pro-B Natriuret Pep Total Protein Albumin Lipase Urine Color Urine Clarity Urine pH Ur Specific [place] Urine Protein Urine Ketones Urine Blood Urine Nitrite Urine Bilirubin Urine Urobilinogen Ur Leukocyte Esterase Urine RBC Urine WBC Ur Epithelial Cells Urine Crystals Urine Bacteria Urine Casts Urine Mucus Ur Culture Indicated? Urine Glucose Path Cons Comment 07/12/25 06:17 WBC 9.69 RBC 5.09 Hgb 15.2 D Hct 44.4 MCV 87 MCH 29.9 MCHC 34.2 RDW 14.1 Plt Count 288 MPV 11.1 H Immature Gran % Neutrophils % Lymphocytes % Monocytes % Eosinophils % Basophils % Nucleated RBC % Absolute Neutrophils Absolute Lymphocytes Absolute Monocytes Absolute Eosinophils Absolute Basophils PT INR APTT D-Dimer VBG pH VBG pCO2 VBG pO2 VBG HCO3 VBG Total CO2 VBG O2 Saturation VBG Base Excess VBG Lactate Sodium 140 Potassium 4.5 D Chloride 108 H Carbon Dioxide 24.8 Anion Gap 7.2 BUN 17 Creatinine 0.89 Est GFR (CKD-EPI 2020) 83.30 Glucose 115 H Calcium 8.6 Magnesium Total Bilirubin AST ALT Alkaline Phosphatase Troponin I NT-Pro-B Natriuret Pep Total Protein Albumin Lipase Urine Color Urine Clarity Urine pH Ur Specific [place] Urine Protein Urine Ketones Urine Blood Urine Nitrite Urine Bilirubin Urine Urobilinogen Ur Leukocyte Esterase Urine RBC Urine WBC Ur Epithelial Cells Urine Crystals Urine Bacteria Urine Casts Urine Mucus Ur Culture Indicated? Urine Glucose Path Cons Comment PFSH All Active Problems (Updated 07/12/25 @ 18:04 by Fly Gong MD) History of complete heart block (Acute) History of ST elevation myocardial infarction (STEMI) (Acute) Near syncope (Acute) COPD (chronic obstructive pulmonary disease) (Chronic) Bilateral sensorineural hearing loss (Acute) Bladder cancer (Acute) Elevated PSA (Acute) BPH w urinary obs/LUTS (Acute) Acute appendicitis (Acute) Medical History (Updated 07/12/25 @ 18:04 by Fly Gong MD) Myocardial infarct Contraindication to percutaneous coronary intervention (PCI) Gross hematuria Vitamin D deficiency Erectile dysfunction Nephrolithiasis HLD (hyperlipidemia) Olecranon bursitis Hypertension Vitiligo Mild anemia Hematuria Surgical History (Updated 10/23/17 @ 10:33 by Danii Eng) Appendectomy (10/17/17) Social History Smoking/Tobacco Use Status: Former Tobacco Use Smoking risk assessment performed?: Yes Alcohol Intake: current Alcohol Intake frequency: 0-2 drinks per day Drug use: Never Substance use type: does not use Housing: house Do you feel safe at home: Yes Do you feel safe in your relationship?: Yes Time Spent with Patient Time Spent with Patient: 45-69 minutes Time was spent: preparing to see the patient(eg.review tests), obtaining and/or reviewing separately otained hiistory, ordering medications,tests, procedures, referring, communicating with other health hearing care practitioner, indepentently interpreting results, counseling the patient and care coordination
--- NOTE | 2025-07-12 17:49 | PDOC.CMPRO ---
Date of service: 07/12/25 Time of Service: 17:49 Care Management Progress Note Progress Note Text Progress Note Text: Sukhjinder was admitted on 07/12/25 after a near syncopal episode with vomiting. He had a STEMI in February and found these symptoms similar. By the time he arrived in the Ed his symptoms had resolved. He was admitted in Observation status but requested to be discharged home mid day. An Echocardiogram was ordered which will be done on an outpatient basis and he was given a 30 day monitor with a plan to follow up with his manager market research this week. Discharge Potential Discharge Needs: Other (cardiology) Anticipated Barriers to Discharge: None Identified Patient/Family Education Needs: Review discharge instructions, discuss Ask Me Three Transportation: Private vehicle Plan: Sukhjinder was discharged home and will follow up with his PCP and manager market research on an outpatient basis. Social Determinants of Health Screening Will the Patient Participate in the Screening?: Declined to provide
== END 2025-07-12 14:01 | disposition home or self-care (01) ==
LOC: ER 07-12 03:53 → MS 07-12 04:34
PROVIDERS: Admitting Provider Family Medicine; Emergency Provider Student in an Organized Health Care Education/Training Program; PCP Student in an Organized Health Care Education/Training Program; Responsible Provider Family Medicine; Visit Provider Family Medicine
DX: R07.89 Other chest pain (principal); R55 Syncope and collapse; I25.2 Old myocardial infarction; D72.829 Elevated white blood cell count, unspecified; R11.2 Nausea with vomiting, unspecified; W19.XXXA Unspecified fall, initial encounter; E87.20 Acidosis, unspecified; E55.9 Vitamin D deficiency, unspecified; E78.5 Hyperlipidemia, unspecified; I10 Essential (primary) hypertension; D64.9 Anemia, unspecified; R31.0 Gross hematuria; L80 Vitiligo; J44.9 Chronic obstructive pulmonary disease, unspecified; C67.9 Malignant neoplasm of bladder, unspecified; Z86.79 Personal history of other diseases of the circulatory system
CPT/HCPCS: 00123; 36415; 71275; 80048; 80053; 82805; 83690; 85027; 93005; 93308; 96361; 96374; 99291; J1650; 71046; 81003; 81015; 83605; 83735; 83880; 84484; 85025; 85379; 85610; 85730; 93010; 99236; G0378; J2405; J3490

== ENCOUNTER 2025-07-12 12:55 | Outpatient (REF) | payer MEDICARE, OTHER, SELFPAY | END 2025-07-12 12:56 | disposition home or self-care (01) | LOC: LBN 12:55 | PROVIDERS: PCP Student in an Organized Health Care Education/Training Program; Visit Provider Internal Medicine Cardiovascular Disease | DX: Z86.79 Personal history of other diseases of the circulatory system (principal) | CPT/HCPCS: 93270 ==